=== PATIENT | male | born 1985 | race Hispanic/Latino ===

== ENCOUNTER 2020-09-20 12:19 | Outpatient (RCR) | payer BC, SELFPAY | END 2020-09-20 23:59 | LOC: IMMUN 12:19 | PROVIDERS: Visit Provider Family Medicine | DX: Z23 Encounter for immunization (principal) | CPT/HCPCS: 0011A; 0012A; 91301 ==

== ENCOUNTER 2024-02-18 23:20 | Inpatient (IN) | payer OTHER, SELFPAY ==
--- NOTE | 2024-02-18 00:40 | RAD_ITS ---
INDICATION: Neuro deficit, acute, stroke suspected EXAMINATION/TECHNIQUE: X-RAY - XR Chest 1 View COMPARISON: None. FINDINGS: LINES/DEVICES: None. LUNGS: No consolidation, edema or effusion. No pneumothorax. MEDIASTINUM AND CARDIOVASCULAR STRUCTURES: Cardiac silhouette not enlarged. BONES AND SOFT TISSUES: Unremarkable. RAD/Chest 1 View IMPRESSION: No radiographic evidence of acute cardiopulmonary disease. Electronically Signed: Vic Vazquez MD at 1:05 EDT ,
[2024-02-18 23:20] VITALS: BP 157/84; PULSE 94; RESP 18; TEMP 36.6; O2SAT 100
--- NOTE | 2024-02-18 23:28 | CT_ITS ---
We are attempting to reach an attending provider to discuss findings. An addendum with communication details will be sent when the communication is complete. INDICATION: CVA. Right arm and leg weakness. EXAMINATION: CT BRAIN - CT Head Stroke Protocol W/O Contrast Injection TECHNIQUE: Multiple axial images were obtained of the head without intravenous contrast. A radiation dose optimization technique was used for this scan. IV Contrast dosage and agent: None. COMPARISON: None. FINDINGS: BRAIN PARENCHYMA: No intra- or extra-axial hemorrhage. No evidence of acute infarct. No intracranial mass or mass effect. Unremarkable white matter for age. There is preservation of the santiago/white matter interface. Posterior fossa structures are unremarkable. CSF SPACES: Cerebral volume appropriate for age. No hydrocephalus. Basal cisterns are patent. CALVARIUM, SKULL BASE, PARANASAL SINUSES AND MASTOID AIR CELLS: No acute osseous finding. Paransasal sinuses are clear. Mastoid air cells are clear. ORBITS: Both globes, extraocular muscles, optic nerves and retrobulbar fat appear unremarkable. ASPECTS Score for Acute Strokes: 10 CT/STROKE Brain/Head without Cont IMPRESSION: No CT evidence of acute intracranial hemorrhage or injury. MRI could further evaluate as clinically indicated. Electronically Signed: Vic Vazquez MD at 23:49 EDT ,
--- NOTE | 2024-02-18 23:28 | EKG12_ITS ---
Test Reason : DYSRHYTHMIA Blood Pressure : / mmHG Vent. Rate : 101 BPM Atrial Rate : 101 BPM P-R Int : 142 ms QRS Dur : 082 ms QT Int : 326 ms P-R-T Axes : 053 021 042 degrees QTc Int : 422 ms Sinus tachycardia Otherwise normal ECG Confirmed by Jovani Alanis ([id number]), market editor KATERIN BENTON ([id number]) on 02/23/2024 6:00:08 AM Referred By: Confirmed By:Jovani Alanis
--- NOTE | 2024-02-18 23:28 | CT_ITS ---
We are attempting to reach an attending provider to discuss findings. An addendum with communication details will be sent when the communication is complete. INDICATION: Neuro deficit, acute, stroke suspected right arm and leg weakness. EXAMINATION: CTA CAROTIDS AND BRAIN - CTA Head and Neck Stroke W/ Contrast (and W/O if performed) TECHNIQUE: Routine CTA of the head and neck was performed with post processing of the angiographic images for volumetric reconstructions. In addition, images were obtained of the [place]. Nascet criteria using the distal ICAs for comparison were used for evaluation of stenoses. 3D reconstructions were reviewed. A radiation dose optimization technique was used for this scan. IV Contrast dosage and agent: 100 mL [id number] COMPARISON: CT head on same day. FINDINGS: --NECK: AORTIC ARCH AND BRANCHES: Normal anatomy, patent. RIGHT CCA: No occlusion, significant stenosis or dissection. RIGHT ICA: No occlusion, significant stenosis or dissection. LEFT CCA: No occlusion, significant stenosis or dissection. LEFT ICA: No occlusion, significant stenosis or dissection. RIGHT VERTEBRAL ARTERY: No occlusion, significant stenosis or dissection. LEFT VERTEBRAL ARTERY: No occlusion, significant stenosis or dissection. NECK SOFT TISSUES: Unremarkable. LUNG APICES: Clear. BONES: Unremarkable. --HEAD: --Anterior circulation: ICAs: No significant stenosis at the intracranial/visualized segments. ACAs: No significant stenosis at the visualized segments. ACOM: Present. MCAs: No significant stenosis at the visualized segments. --Posterior circulation: PCOMs: Not seen supply chain generalist: No significant stenosis at the visualized segments. BASILAR ARTERY: No significant stenosis. VERTEBRAL ARTERIES: No significant stenosis at the intradural/visualized segments. No evidence of intracranial aneurysm or vascular malformation. CT/STROKE CTA Head AND Neck W/Con IMPRESSION: No CT evidence of cervical or proximal intracranial vascular occlusion or focal flow-limiting stenosis. Electronically Signed: Vic Vazquez MD at 0:22 EDT ,
[2024-02-18 23:29] VITALS: BP 157/84; PULSE 94; RESP 18; O2SAT 100
[2024-02-18 23:42] VITALS: BMI 31.8
[2024-02-18 23:45] VITALS: BMI 31.8
[2024-02-18 23:52] VITALS: BP 147/93; PULSE 103; RESP 23; TEMP 36.6; O2SAT 97
[2024-02-18] MEDS: 0.9% Saline Lock 10 ML Syringe IV (23:52)
[2024-02-18] MEDS: TENECTEPLASE 3427.2 MG IV (23:52)
[2024-02-19] VITALS (41 sets, daily range): BP systolic 95–158; BP diastolic 71–102; PULSE 76–112; RESP 13–28; TEMP 36.1–36.8; O2SAT 92–99; BMI 32.7; BMI 31.8; BMI 32.8
[2024-02-19 00:03] LABS: International Normalized Ratio 1.2; Partial Thromboplast Time 32.8 Seconds (24.1-36.2); Prothrombin Time (Protime)PT. 15.4 SECONDS (11.7-14.9)
[2024-02-19 00:04] LABS: Anion Gap 6 (5-15); BUN 11 mg/dL (7-18); BUN/Creat Ratio 11.8 RATIO (10-20); Calcium,Total 9.3 mg/dL (8.5-10.1); Chloride 104 mmol/L (98-107); Creatinine, Serum 0.93 mg/dL (0.70-1.30); EST Glomerular Filtration Rate 97 mL/min (>60); Est Glom Filt Rate - Afr Amer 117 mL/min (>60); Estimated Creatinine Clearance 121.58 ml/min; Glucose 112 mg/dL (74-106); Potassium 3.7 mmol/L (3.5-5.1); Sodium Level 136 mmol/L (136-145)
[2024-02-19 00:29] LABS: Absolute Lymphocyte Count 2.54 X10^3/uL (0.83-4.51); Absolute Neutrophil Count 7.2 X10^3/uL (2.0-7.7); Basophil# 0.09 X10^3/uL; Basophil% 0.8 % (0-1); Eosinophils% 1.9 % (0-5); Hematocrit 43.3 % (40-54); Hemoglobin 14.6 g/dL (13.0-16.5); Lymphocyte # 2.54 X10^3/ul (0.83-4.51); Lymphocyte % 23.5 % (19-41); Mean Corp Hgb Conc 33.7 g/dL (32-36); Mean Corpuscular Hgb 31.1 pg (27.0-32.0); Mean Corpuscular Volume 92.1 fL (80-94); Mean Platelet Vol. 11.1 fl (6.2-12.0); Monocyte# 0.74 X10^3/uL; Monocyte% 6.9 % (0-10); NRBC Flagged by Analyzer 0 % (0-5); Neutrophil # 7.19 X10^3/uL (2.7-7.7); Neutrophil % 66.5 % (47-70); Platelet Count 229 K/mm3 (150-450); RBC Distribution Width CV 12.8 % (11.6-14.6); RBC Distribution Width SD 42.2 fl (35.1-43.9); White Blood Count 10.8 K/mm3 (4.4-11.0)
[2024-02-19] MEDS: 0.9% Normal Saline (1000mL) 1,000 ML 100 ML IV (00:30)
--- NOTE | 2024-02-19 00:42 | EDS_ITS ---
HPI History of Present Illness Chief Complaint: Stroke Alert Informant: patient, spouse/S.O. and EMS Narrative Narrative: Patient is a 38-year-old male with no significant past medical history. He states around [id number] [phone] this evening he felt some numbness and tingling in his right arm and leg which lasted for a few seconds and resolved. He states he went to work and around 10 PM he had sudden onset of right arm and right leg weakness and numbness to the point where he could not stand. Secondary to this EMS was called. Patient states that there is no family history of stroke and he denies any past medical issues. He does state he recently started Lamisil secondary to onychomycosis but has only been on that for approximately 1 week. PFSH PFS Medical History no medical history Home Medications ?Medication ?Instructions ?Recorded ?Last Taken ?Type terbinafine HCl 250 mg tablet 250 mg PO DAILY 02/19/24 Unknown History Allergy/AdvReac Type Severity Reaction Status Date / Time No Known Allergies Allergy Verified 02/18/24 23:27 Social History Smoking Status: Never smoker ROS [facility] ED Constitutional Constitutional ED: Denies chills or fever(s) Eyes Eyes: Denies change in vision or diplopia ENT ENT ED: Denies sore throat Cardiovascular Cardiovascular: Denies chest pain, palpitations or racing heartbeat Respiratory/Chest Respiratory/Chest: Denies cough or dyspnea Gastrointestinal Gastrointestinal: Denies abdominal pain, diarrhea, nausea or vomiting Genitourinary Genitourinary ED: Denies dysuria Musculoskeletal Musculoskeletal: Denies myalgias Integumentary Denies rash Neurologic Neurologic: Reports paresthesias and weakness; Denies headache(s) Hematologic/Lymphatic Hematologic/Lymphatic: Denies easy bleeding or easy bruising EXAM Physical Exam Const Vital Signs: 02/18/24 23:20 02/18/24 23:29 02/18/24 23:33 Temperature 97.9 F Temperature Source Temporal Pulse Rate 94 94 Respiratory Rate 18 18 Blood Pressure 157/84 H 157/84 H Blood Pressure Mean 108 108 Blood Pressure Source Blood Pressure Position Blood Pressure Location Pulse Ox 100 100 Oxygen Delivery Method Room Air Room Air Room Air 02/18/24 23:52 02/18/24 23:52 02/19/24 00:07 Temperature 98 F Temperature Source Oral Pulse Rate 103 H 97 Respiratory Rate 23 H 22 H Blood Pressure 147/93 H 147/93 H 158/79 H Blood Pressure Mean 111 105 Blood Pressure Source Monitor Monitor Blood Pressure Position Semi-Fowlers Semi-Fowlers Blood Pressure Location Right Arm Right Arm Pulse Ox 97 98 Oxygen Delivery Method Room Air Room Air 02/19/24 00:22 Temperature Temperature Source Pulse Rate 88 Respiratory Rate 20 H Blood Pressure 151/90 H Blood Pressure Mean 110 Blood Pressure Source Monitor Blood Pressure Position Semi-Fowlers Blood Pressure Location Right Arm Pulse Ox 97 Oxygen Delivery Method Room Air Positive well nourished and well developed General Appearance ED: well developed; Negative for pallor HEENT Reports moist mucous membranes HEENT Narrative: No tongue or lip swelling no oral lesions no airway edema or compromise Eyes PERRL and EOMs intact bilaterally General Eye ED: Negative for pale conjunctiva or scleral icterus Neck supple Neck Narrative: No nuchal rigidity or meningeal signs noted No carotid bruit noted Chest Wall palpation of chest normal Resp normal respiratory effort and clear to auscultation bilaterally Cardio regular rate and regular rhythm Rate: other Other Details: Heart is regular rate and rhythm without murmurs rubs or gallops Radial and carotid pulses are equal and symmetric GI normal to inspection, nondistended, normoactive bowel sounds, non-tender, non- distended and no masses GI Narrative: No voluntary guarding or rigidity or pulsatile mass Auscultation: normoactive bowel sounds Palpation: soft Extremity normal to inspection Extremity Narrative: No asymmetric edema no pitting edema negative Homans' sign bilaterally Neuro oriented x3 Neuro Narrative: GCS of 15 No truncal ataxia Patient has an NIH stroke scale score of 6. He receives a score based on 2 points for facial droop. 1 point for right leg drift. 1 point for right arm drift. 1 point for right sided ataxia. 1 point for mild sensory loss Sensorium / Orientation: alert Psych mental status grossly normal Skin no rashes or lesions noted and no wounds General Skin Exam: Negative for jaundice or pallor MDM MDM MDM Narrative Medical decision making narrative: Patient arrived to the ER hypertensive but otherwise with stable vitals. He had symptoms consistent with an acute stroke and therefore a stroke alert was activated. He reported a sensation of weakness/numbness that lasted just for a few seconds around 630/645 but his severe case of weakness where he could not ambulate was at 10 PM. The symptoms are concerning for a stuttering stroke and 10 PM would be considered a last known well as that was the last bout of symptoms and the most intense symptoms. Following the CT which was negative for acute bleed patient was given TNK based on his score of 6. CTA revealed no acute findings. Patient did have spontaneous improvement of symptoms and NIH stroke scale score reduced to a value of 1. Teleneurology was consulted and feel that patient is safe to be kept at this facility as long as CTA does not reveal any signs of LVO. Patient's CTA revealed no acute changes either and therefore medicine was contacted and he will be kept at our hospital for further evaluation of his TIA versus stuttering stroke symptoms. History & Record Review Discussion w/independent historian: Patient and Significant other Lab Data Attestation: I reviewed the patient's lab results. Labs: Laboratory Results - last 24 hr 02/18/24 02/18/24 02/18/24 22:36 22:36 23:48 WBC Cancelled Corrected WBC Cancelled RBC Cancelled Hgb Cancelled Hct Cancelled MCV Cancelled MCH Cancelled MCHC Cancelled RDW Std Deviation Cancelled RDW Coeff of Surya Cancelled Plt Count Cancelled MPV Cancelled Immature Gran % (Auto) Cancelled Neut % (Auto) Cancelled Lymph % (Auto) Cancelled Hughes % (Auto) Cancelled Eos % (Auto) Cancelled Baso % (Auto) Cancelled Absolute Neuts (auto) Cancelled Absolute Lymphs (auto) Cancelled Total Counted Cancelled Neutrophils % (Manual) Cancelled Band Neutrophils % Cancelled Lymphocytes % (Manual) Cancelled Monocytes % (Manual) Cancelled Eosinophils % (Manual) Cancelled Basophils % (Manual) Cancelled Metamyelocytes % Cancelled Myelocytes % Cancelled Promyelocytes % Cancelled Blast Cells % Cancelled Plasma Cell % (Manual) Cancelled Other Cells % Cancelled Nucleated RBC % Cancelled Nucleated RBCs/100 WBC Cancelled Differential Comment Cancelled Diff Path Review Cancelled Hypersegmented Neuts Cancelled Atypical Lymphocytes Cancelled Reactive Lymphocytes Cancelled Smudge Cells Cancelled Toxic Granulation Cancelled Toxic Vacuolation Cancelled Dohle Bodies Cancelled Shivani Rods Cancelled Platelet Estimate Cancelled Plt Morphology Comment Cancelled RBC Morphology Cancelled Cancelled Polychromasia Cancelled Hypochromasia Cancelled Basophilic Stippling Cancelled Anisocytosis Cancelled Microcytosis Cancelled Macrocytosis Cancelled Spherocytes Cancelled Sickle Cells Cancelled Target Cells Cancelled Tear Drop Cells Cancelled Ovalocytes Cancelled Stomatocytes Cancelled Krause-[place]-Academy Bodies Cancelled Jadiel Cells Cancelled Bite Cells Cancelled Crenated Cell Cancelled Acanthocytes (Spur) Cancelled Rouleaux Cancelled Schistocytes Cancelled PT 15.4 H INR 1.2 APTT 32.8 Sodium 136 Potassium 3.7 Chloride 104 Carbon Dioxide 26.0 Anion Gap 6 BUN 11 Creatinine 0.93 Estim Creat Clear Calc 121.58 Est GFR (MDRD) Af Amer 117 Est GFR (MDRD) Non-Af 97 BUN/Creatinine Ratio 11.8 Glucose 112 H Calcium 9.3 02/19/24 00:05 WBC 10.8 Corrected WBC RBC 4.70 Hgb 14.6 Hct 43.3 MCV 92.1 MCH 31.1 MCHC 33.7 RDW Std Deviation 42.2 RDW Coeff of Surya 12.8 Plt Count 229 MPV 11.1 Immature Gran % (Auto) 0.400 Neut % (Auto) 66.5 Lymph % (Auto) 23.5 Hughes % (Auto) 6.9 Eos % (Auto) 1.9 Baso % (Auto) 0.8 Absolute Neuts (auto) 7.2 Absolute Lymphs (auto) 2.54 Total Counted Neutrophils % (Manual) Band Neutrophils % Lymphocytes % (Manual) Monocytes % (Manual) Eosinophils % (Manual) Basophils % (Manual) Metamyelocytes % Myelocytes % Promyelocytes % Blast Cells % Plasma Cell % (Manual) Other Cells % Nucleated RBC % 0 Nucleated RBCs/100 WBC Differential Comment Diff Path Review Hypersegmented Neuts Atypical Lymphocytes Reactive Lymphocytes Smudge Cells Toxic Granulation Toxic Vacuolation Dohle Bodies Shivani Rods Platelet Estimate Plt Morphology Comment RBC Morphology Polychromasia Hypochromasia Basophilic Stippling Anisocytosis Microcytosis Macrocytosis Spherocytes Sickle Cells Target Cells Tear Drop Cells Ovalocytes Stomatocytes Krause-[place]-Academy Bodies Jadiel Cells Bite Cells Crenated Cell Acanthocytes (Spur) Rouleaux Schistocytes PT INR APTT Sodium Potassium Chloride Carbon Dioxide Anion Gap BUN Creatinine Estim Creat Clear Calc Est GFR (MDRD) Af Amer Est GFR (MDRD) Non-Af BUN/Creatinine Ratio Glucose Calcium Radiography Diagnostic Testing: Clinical Impression(s) from Imaging Studies Brain CT 02/18/24 23:28 IMPRESSION: No CT evidence of acute intracranial hemorrhage or injury. MRI could further evaluate as clinically indicated. Electronically Signed: Vic Vazquez MD at 23:49 EDT , ADDENDUM: 02/18/24 2357 IMPRESSION: No CT evidence of acute intracranial hemorrhage or injury. MRI could further evaluate as clinically indicated. N.B. : The above Results were Read Back by Vic Vazquez MD to Dr. Mil Walter DO, and understanding confirmed on 02/18/2024 23:50:47 (ET). Electronically Signed: Vic Vazquez MD at 23:49 EDT Reading Location ID and State: [facility] / [place] Tel , Service support , Head/Neck CTA 02/18/24 23:28 IMPRESSION: No CT evidence of cervical or proximal intracranial vascular occlusion or focal flow-limiting stenosis. Electronically Signed: Vic Vazquez MD at 0:22 EDT , ADDENDUM: 02/19/24 0031 IMPRESSION: No CT evidence of cervical or proximal intracranial vascular occlusion or focal flow-limiting stenosis. N.B. : The above Results were Read Back by Vic Vazquez MD to Dr. Mil Walter DO, and understanding confirmed on 02/19/2024 00:24:42 (ET). Electronically Signed: Vic Vazquez MD at 0:22 EDT , 1 view chest x-ray as interpreted by the emergency medicine physician reveals no acute infiltrate or pneumothorax or pleural effusion Critical Care Time Critical Care Time: Yes Critical care time (excluding procedures): Discussing w/Patient &/or Family/Dispatch Machine Runner, Discussing w/Consultants and - (Critical care time of 31 minutes) Discharge Plan Triage Chief Complaint: Stroke Alert ED Provider: Mil Walter Dx/Rx/DC Orders Clinical Impression: TIA (transient ischemic attack), Hypertension Prescriptions: No Action terbinafine HCl 250 mg tablet 250 mg PO DAILY Primary Care Provider: NOEMÍ FERGUSON Referrals: NOEMÍ FERGUSON [Other] Print Language: Upper Sorbian Disposition Disposition: Acute Care Hospital [facility]
[2024-02-19 01:16] LABS: Amphetamine Urine VISTA NEGATIVE (<1000 ng/mL); Barbiturate Urine VISTA NEGATIVE (< 200 ng/mL); Benzodiazepine Urine VISTA NEGATIVE (< 200 ng/mL); Cocaine Urine VISTA NEGATIVE (< 300 ng/mL); Ecstacy Urine VISTA NEGATIVE (< 500 ng/mL); Methadone Urine VISTA NEGATIVE (< 300 ng/mL); PCP Urine VISTA NEGATIVE (< 25 ng/mL); THC Urine VISTA NEGATIVE (< 50 ng/mL); Vista UDS pH Range 6
--- NOTE | 2024-02-19 01:17 | PCM.HP.STD ---
HPI - General General Date of Admission: 02/19/24 Date of Service: 02/19/24 Chief Complaint: Transient Right-sided Weakness with Numbness and Tingling. HPI Narrative LORIE MCCORMICK, is a 38 M with a past medical history of essential hypertension, obesity; with BMI of 31.8 this admission, remote history of Right femur fracture (2005); s/p ORIF done in [place] with subsequent hardware failure and refracture requiring revision with titanium keren in shaft and onychomycosis; with patient recently started on oral Terbinafine who presents to [facility] ER complaining of Right-sided weakness with numbness and tingling. Mr. Mccormick reports his symptoms began approximately 6:45 PM when he began to feel numbness and tingling in his Right leg and arm which lasted for a few seconds and then resolved. He then went to work around 10 PM and had a sudden-onset of severe weakness in his Right arm and Right leg to the point where he could not stand resulting in EMS activation. There was no report of fever, chills, nausea, vomiting, diarrhea, constipation, recent illness, seizure activity, headache or slurred speech. He denies a history of similar previous episodes, family history of premature CVA or illicit drug use. In the ER he was treated with TNK due to a stroke score of 6 with immediate improvement and he was then diagnosed with suspected TIA versus stuttering CVA and he was then admitted to the ICU for stay that is expected to extend beyond 2 midnights. [facility] Medical History no medical history Home Medications ?Medication ?Instructions ?Recorded ?Last Taken ?Type terbinafine HCl 250 mg tablet 250 mg PO DAILY 02/19/24 Unknown History Allergy/AdvReac Type Severity Reaction Status Date / Time No Known Allergies Allergy Verified 02/18/24 23:27 Social History Smoking Status: Never smoker ROS ROS Narrative Review of systems: General: Patient denies fever or chills. HENT: Denies headache, denies stuffy nose, denies sore throat EYES: Denies changes in vision or discharge from eyes. Resp: Denies cough, denies shortness of breath Cardiac: Denies chest pain, palpitations or heart racing. GI: Denies abdominal pain, denies changes in bowel, denies nausea or vomiting. : Denies changes in urination Extremity: Denies swelling Musculoskeletal: Patient denies arthralgias or myalgias. Neuro: Patient admits to paresthesias of his Right upper and lower extremity followed by severe weakness of his Right and upper and lower extremity that resolved after TNK as per HPI. Heme: Denies any bleeding or bruising Skin: Denies rashes Psychiatric: No complaints voiced related uncontrolled depression or anxiety Endocrine: No polyuria, polydipsia or polyphagia. The rest of the 14 point ROS was negative except for positives in HPI. Vital Signs Vital Signs Vital Signs: 02/18/24 23:20 02/18/24 23:29 02/18/24 23:33 Temperature 97.9 F Temperature Source Temporal Pulse Rate 94 94 Respiratory Rate 18 18 Blood Pressure 157/84 H 157/84 H Blood Pressure Mean 108 108 Blood Pressure Source Blood Pressure Position Blood Pressure Location Pulse Ox 100 100 Oxygen Delivery Method Room Air Room Air Room Air 02/18/24 23:52 02/18/24 23:52 02/19/24 00:07 Temperature 98 F Temperature Source Oral Pulse Rate 103 H 97 Respiratory Rate 23 H 22 H Blood Pressure 147/93 H 147/93 H 158/79 H Blood Pressure Mean 111 105 Blood Pressure Source Monitor Monitor Blood Pressure Position Semi-Fowlers Semi-Fowlers Blood Pressure Location Right Arm Right Arm Pulse Ox 97 98 Oxygen Delivery Method Room Air Room Air 02/19/24 00:22 02/19/24 00:37 02/19/24 00:42 Temperature Temperature Source Oral Pulse Rate 88 89 87 Respiratory Rate 20 H 25 H 25 H Blood Pressure 151/90 H 141/92 H 152/92 H Blood Pressure Mean 110 108 112 Blood Pressure Source Monitor Monitor Monitor Blood Pressure Position Semi-Fowlers Semi-Fowlers Semi-Fowlers Blood Pressure Location Right Arm Right Arm Right Arm Pulse Ox 97 98 98 Oxygen Delivery Method Room Air Room Air Room Air 02/19/24 00:58 Temperature Temperature Source Pulse Rate 92 Respiratory Rate 20 H Blood Pressure 141/92 H Blood Pressure Mean 108 Blood Pressure Source Monitor Blood Pressure Position Semi-Fowlers Blood Pressure Location Right Arm Pulse Ox 97 Oxygen Delivery Method Room Air Weight Weight: 209 lb 7.026 oz Body Mass Index (BMI) 31.8 Physical Exam Const alert, oriented x3, no apparent distress, average body habitus and healthy appearing General Appearance: cooperative HEENT normocephalic, head/scalp atraumatic, hearing grossly normal bilaterally and moist oral mucous membranes Eyes PERRL and EOMs intact bilaterally Neck no lymphadenopathy and supple Resp normal respiratory effort, no retractions, no use of accessory muscles and clear to auscultation bilaterally Cardio regular rate and regular rhythm GI normal to inspection, nondistended, normoactive bowel sounds, soft to palpation, non-tender and non-distended Extremity normal to inspection and full ROM Skin Skin Narrative: Patient has no evidence of abscess, rash or jaundice Neuro oriented x3, CN's II-XII intact bilaterally, moves all extremities and no focal motor deficits Sensorium / Orientation: awake, alert, oriented to person, oriented to place and oriented to time Speech: speech normal Psych affect normal Results Medical Records Data Attestation: I reviewed the patient's medical records Lab / Micro Data Attestation: I reviewed the patient's lab results. 02/19/24 04:20 02/19/24 04:20 Labs: Laboratory Results - last 24 hr 02/18/24 22:36: WBC Cancelled, Corrected WBC Cancelled, RBC Cancelled, Hgb Cancelled, Hct Cancelled, MCV Cancelled, MCH Cancelled, MCHC Cancelled, RDW Std Deviation Cancelled, RDW Coeff of Surya Cancelled, Plt Count Cancelled, MPV Cancelled, Immature Gran % (Auto) Cancelled, Neut % (Auto) Cancelled, Lymph % (Auto) Cancelled, [place] % (Auto) Cancelled, Eos % (Auto) Cancelled, Baso % (Auto) Cancelled, Absolute Neuts (auto) Cancelled, Absolute Lymphs (auto) Cancelled, Total Counted Cancelled, Neutrophils % (Manual) Cancelled, Band Neutrophils % Cancelled, Lymphocytes % (Manual) Cancelled, Monocytes % (Manual) Cancelled, Eosinophils % (Manual) Cancelled, Basophils % (Manual) Cancelled, Metamyelocytes % Cancelled, Myelocytes % Cancelled, Promyelocytes % Cancelled, Blast Cells % Cancelled, Plasma Cell % (Manual) Cancelled, Other Cells % Cancelled, Nucleated RBC % Cancelled, Nucleated RBCs/100 WBC Cancelled, Differential Comment Cancelled, Diff Path Review Cancelled, Hypersegmented Neuts Cancelled, Atypical Lymphocytes Cancelled, Reactive Lymphocytes Cancelled, Smudge Cells Cancelled, Toxic Granulation Cancelled, Toxic Vacuolation Cancelled, Dohle Bodies Cancelled, Shivani Rods Cancelled, Platelet Estimate Cancelled, Plt Morphology Comment Cancelled, RBC Morphology Cancelled 02/18/24 22:36: RBC Morphology Cancelled, Polychromasia Cancelled, Hypochromasia Cancelled, Basophilic Stippling Cancelled, Anisocytosis Cancelled, Microcytosis Cancelled, Macrocytosis Cancelled, Spherocytes Cancelled, Sickle Cells Cancelled, Target Cells Cancelled, Tear Drop Cells Cancelled, Ovalocytes Cancelled, Stomatocytes Cancelled, [place] Bodies Cancelled, Jadiel Cells Cancelled, Bite Cells Cancelled, Crenated Cell Cancelled, Acanthocytes (Spur) Cancelled, Rouleaux Cancelled, Schistocytes Cancelled, Sodium 136, Potassium 3.7, Chloride 104, Carbon Dioxide 26.0, Anion Gap 6, BUN 11, Creatinine 0.93, Estim Creat Clear Calc 121.58, Est GFR (MDRD) Af Amer 117, Est GFR (MDRD) Non-Af 97, BUN/Creatinine Ratio 11.8, Glucose 112 H, Calcium 9.3 02/18/24 23:48: PT 15.4 H, INR 1.2, APTT 32.8 02/19/24 00:05: WBC 10.8, RBC 4.70, Hgb 14.6, Hct 43.3, MCV 92.1, MCH 31.1, MCHC 33.7, RDW Std Deviation 42.2, RDW Coeff of Surya 12.8, Plt Count 229, MPV 11.1, Immature Gran % (Auto) 0.400, Neut % (Auto) 66.5, Lymph % (Auto) 23.5, [place] % (Auto) 6.9, Eos % (Auto) 1.9, Baso % (Auto) 0.8, Absolute Neuts (auto) 7.2, Absolute Lymphs (auto) 2.54, Nucleated RBC % 0 02/19/24 00:45: Urine Opiates Screen NEGATIVE, Urine Methadone Screen NEGATIVE, Ur Barbiturates Screen NEGATIVE, Ur Phencyclidine Scrn NEGATIVE, Ur Amphetamines Screen NEGATIVE, MDMA (Ecstasy) Screen NEGATIVE, U Benzodiazepines Scrn NEGATIVE, Urine Cocaine Screen NEGATIVE, U Cannabinoids Screen NEGATIVE, Ur Drug Screen Comment Imaging Radiology Impression Chest X-Ray 02/18/24 00:40 IMPRESSION: No radiographic evidence of acute cardiopulmonary disease. Electronically Signed: Vic Vazquez MD at 1:05 EDT Reading Location ID and State: [facility] / [place] Tel , Service support , Brain CT 02/18/24 23:28 IMPRESSION: No CT evidence of acute intracranial hemorrhage or injury. MRI could further evaluate as clinically indicated. Electronically Signed: Vic Vazquez MD at 23:49 EDT Reading Location ID and State: [facility] / [place] Tel , Service support , ADDENDUM: 02/18/24 2357 IMPRESSION: No CT evidence of acute intracranial hemorrhage or injury. MRI could further evaluate as clinically indicated. N.B. : The above Results were Read Back by Vic Vazquez MD to Dr. Mil Walter DO, and understanding confirmed on 02/18/2024 23:50:47 (ET). Electronically Signed: Vic Vazquez MD at 23:49 EDT Reading Location ID and State: [facility] / [place] Tel , Service support , Head/Neck CTA 02/18/24 23:28 IMPRESSION: No CT evidence of cervical or proximal intracranial vascular occlusion or focal flow-limiting stenosis. Electronically Signed: Vic Vazquez MD at 0:22 EDT , ADDENDUM: 02/19/24 0031 IMPRESSION: No CT evidence of cervical or proximal intracranial vascular occlusion or focal flow-limiting stenosis. N.B. : The above Results were Read Back by Vic Vazquez MD to Dr. Mil Walter DO, and understanding confirmed on 02/19/2024 00:24:42 (ET). Electronically Signed: Vic Vazquez MD at 0:22 EDT , Assessment & Plan Assessment/Plan (1) TIA (transient ischemic attack): (2) Obesity (BMI 30.0-34.9): (3) Hypertension: QUALIFIERS: Hypertension type: unspecified Qualified Code(s): I10 - Essential (primary) hypertension PLAN: Plan 1. TIA versus stuttering CVA with transient Right upper and lower extremity paresthesias followed by severe Right upper and lower extremity weakness markedly improved after TNK - Admit to ICU for close monitoring after TNK as per protocol. Check echocardiogram to evaluate LVEF and also to assess for possible PFO. Check MRI of brain to evaluate for evidence of ischemic injury. Check lipid profile, hemoglobin A1c and TSH in light of patient's young age and severe symptoms for more complete metabolic evaluation. UDS done in ER completely negative for drugs of abuse. Begin statin but avoid ECASA for 24 hours after TNK per protocol. 2. Obesity; with BMI of 31.8 this admission complicating #1 - Weight loss will be recommended. 3. Essential hypertension - Hold scheduled antihypertensives until CVA definitively ruled out on MRI. 4. Remote history of Right femur fracture (~2005); s/p ORIF done in [place] with subsequent hardware failure and refracture requiring revision with titanium keren in shaft - Noted. 5. Onychomycosis - Restart terbinafine as outpatient which would likely be more effective as pulsed therapy rather than daily administration due to increased risk of toxicity. 6. DVT prophylaxis - SCD's only after recent TNK administration. Total time: Approximately 75 minutes. Charges/Coding Visit Charges Inpatient E&M: 86761 Init Hosp L3
--- NOTE | 2024-02-19 02:01 | ED.RN ---
REPORT CALLED TO ICU NURSE CORTEZ AT THIS TIME, NO FURTHER QUESTIONS AT THIS TIME.
[2024-02-19 02:11] LABS: Hemoglobin A1c 5.4 % (3.8-5.6)
[2024-02-19 02:21] LABS: Magnesium 2.1 mg/dL (1.6-2.6); Phosphorus 3.5 mg/dL (2.5-4.9); Thyroid Stim Hormone (TSH) 1.48 uIU/mL (0.358-3.74)
--- NOTE | 2024-02-19 02:34 | ECHOD_ITS ---
Reason For Study: EMBOLI Procedure This was a 2D Doppler, Color Flow transthoracic echocardiogram. The study was technically difficult. Difficulty lying in left lateral decubitus position due to RT sided weakness and drifting. Exam performed portable in ICU/CCU. Left Ventricle Normal LV size. Mild concentric left ventricular hypertrophy. Left ventricular systolic function is normal. The estimated ejection fraction is 65 %. No evidence for diastolic dysfunction. No regional wall motion abnormalities noted. Right Ventricle Normal RV size. Normal systolic function. Atria Normal left atrium. Normal right atrium. Bubble contrast study is negative for PFO/ASD. Mitral Valve The mitral valve is structurally normal. No prolapse or stenosis seen. Tricuspid Valve Normal tricuspid valve. Unable to estimate RV systolic pressure due to insufficient tricuspid regurgitant envelope. Aortic Valve Trisinus/trileaflet aortic valve. Pulmonic Valve Normal pulmonic valve. Great Vessels Normal aortic root. Pericardium/Pleural No pericardial effusion. Medication Performed a rapid injection of agitated mix of 9 cc saline and 1cc air to assess for atrial septal defect. x 2. MMode/2D Measurements & Calculations LVIDd: 4.8 cm IVSd: 1.2 cm Ao root diam: 2.9 cm LVIDs: 2.9 cm LVPWd: 1.2 cm RVDd: 3.0 cm FS: 40.2 % LAV(MOD-bp): 44.6 ml LVAd ap4: 25.2 cm2 LVAd ap2: 26.2 cm2 LAV(MOD-bp) Indexed: 21.5 ml/m2 LVLd ap4: 7.5 cm LVLd ap2: 7.5 cm LAV(MOD-sp2): 40.6 ml EDV(MOD-sp4): 69.8 ml EDV(MOD-sp2): 76.8 ml LAV(MOD-sp4): 48.4 ml EDV(sp4-el): 72.5 ml EDV(sp2-el): 78.2 ml LVAs ap4: 13.6 cm2 LVAs ap2: 15.0 cm2 LVLs ap4: 6.2 cm LVLs ap2: 6.4 cm ESV(MOD-sp4): 27.7 ml ESV(MOD-sp2): 29.9 ml ESV(sp4-el): 25.2 ml ESV(sp2-el): 29.8 ml EF(MOD-sp4): 60.4 % EF(MOD-sp2): 61.0 % EF(sp4-el): 65.3 % SV(MOD-sp4): 42.2 ml SV(MOD-sp2): 46.9 ml SV(sp4-el): 47.3 ml LA A4 area: 16.7 cm2 LA dimension(2D): 3.8 cm RA A4 area: 10.2 cm2 TAPSE: 2.4 cm Time Measurements MV dec time: 0.15 sec Doppler Measurements & Calculations MV E max crispin: 66.3 cm/sec Lat Peak E' Crispin: 11.2 cm/sec Med Peak E' Crispin: 9.7 cm/sec MV A max crispin: 92.6 cm/sec E/E' lat: 5.9 E/E' med: 6.9 MV E/A: 0.72 MV V2 max: 97.9 cm/sec MV P1/2t max crispin: 65.8 cm/sec Ao V2 max: 122.9 cm/sec MV max P.8 mmHg MV P1/2t: 39.8 msec Ao max P.1 mmHg MV V2 mean: 61.7 cm/sec Ao V2 mean: 89.0 cm/sec MV mean P.7 mmHg MV dec slope: 484.8 cm/sec2 Ao mean P.6 mmHg MV V2 VTI: 15.0 cm MVA(P1/2t): 5.5 cm2 Ao V2 VTI: 23.0 cm AV (velocity ratio): 0.80 LV V1 max: 107.2 cm/sec PA V2 max: 121.7 cm/sec LV V1 max P.6 mmHg PA V2 mean: 80.9 cm/sec LV V1 mean P.7 mmHg LV V1 mean: 79.2 cm/sec LV V1 VTI: 18.5 cm ECHO/Echo Complete Interpretation Summary The estimated ejection fraction is 65 %. Mild concentric left ventricular hypertrophy. Bubble contrast study is negative for PFO/ASD. Structurally normal valves. Ordering Physician: Jeyson Solorio Referring Physician: OTD Performed By: Yin Molina RDCS, RVT
[2024-02-19 04:28] LABS: Absolute Lymphocyte Count 1.57 X10^3/uL (0.83-4.51); Basophil# 0.08 X10^3/uL; Basophil% 0.5 % (0-1); Eosinophil# 0.02 X10^3/uL; Eosinophils% 0.1 % (0-5); Hemoglobin 14.9 g/dL (13.0-16.5); Lymphocyte # 1.57 X10^3/ul (0.83-4.51); Lymphocyte % 10.8 % (19-41); Mean Corp Hgb Conc 33.9 g/dL (32-36); Mean Corpuscular Volume 91.5 fL (80-94); Mean Platelet Vol. 10.8 fl (6.2-12.0); Monocyte# 0.88 X10^3/uL; NRBC Flagged by Analyzer 0 % (0-5); Neutrophil # 11.98 X10^3/uL (2.7-7.7); Neutrophil % 82.1 % (47-70); Platelet Count 244 K/mm3 (150-450); RBC Distribution Width CV 12.4 % (11.6-14.6); RBC Distribution Width SD 41.2 fl (35.1-43.9); Red Blood Count 4.81 M/mm3 (4.6-6.2); White Blood Count 14.6 K/mm3 (4.4-11.0)
[2024-02-19 04:53] LABS: ALB/GLOB Ratio 1.3 RATIO (0.9-2.4); AST(SGOT) 30 U/L (15-37); Alanine Aminotransfer ALT/SGPT 62 U/L (16-61); Albumin, Serum 4.3 g/dL (3.2-5.0); Alkaline Phosphatase 57 U/L (45-117); Anion Gap 8 (5-15); BUN 8 mg/dL (7-18); BUN/Creat Ratio 11.1 RATIO (10-20); Calcium,Total 9.2 mg/dL (8.5-10.1); Chloride 106 mmol/L (98-107); Cholesterol 193 mg/dL (200); Creatinine, Serum 0.72 mg/dL (0.70-1.30); EST Glomerular Filtration Rate 131 mL/min (>60); Est Glom Filt Rate - Afr Amer 158 mL/min (>60); Estimated Creatinine Clearance 154.14 ml/min; Globulin 3.2 g/dL (2.2-4.2); Glucose 137 mg/dL (74-106); High Density Lipoprotein 43 mg/dL; Potassium 3.8 mmol/L (3.5-5.1); Protein, Total 7.5 g/dL (6.4-8.2); Sodium Level 140 mmol/L (136-145); Triglycerides 61 mg/dL; Very Low Density Lipoprotein 12 mg/dL (5-40)
--- NOTE | 2024-02-19 09:36 | CASEMGMT ---
RN SPENCER Assessment Face to Face with patient for initial transition planning/care coordination assessment. RN CM introduced self and role at [facility], pt voices understanding. Pt is A&Ox4 and is resting comfortably in bed and is calm. Care providers, pharmacy, and demographics verified. Admitting dx: TIA vs CVA LACE Strata: 1 PCP: Claudia Perea Specialists: Denies Preferred Pharmacy: [facility] During this stay Insurance: [facility] Prescription Benefit: Yes LNOK: Laine Vivek (W) Living Arrangements: Pt lives with his and 2 children (ages 18 and 12) and mother & father in-law in a ranch style home with 3 steps to enter ADLs/IADLs: Independent at baseline Transportation: Self, DME: Denies all DME uses or needs HHC/SNF: Denies history Pt?s goal: Home Plan: Pt states that he feels safe returning home at time of DC. PT evaluation is pending and was held today d/t the pt receiving TNK. Pt states that he doesn't foresee himself needing HHC or OP therapy but would like to see how he progresses in the hospital before making a final decision. CM to follow therapy recommendations and pt progression in the hospital to ensure the safest DC plan moving forward. Aviva Ham RN, CM
--- NOTE | 2024-02-19 10:35 | PCM.HOSP.N ---
Hospitalist Note Mr. Doyle is a 38-year-old male who presented to emergency department at [facility] on 02/19/2024 due to transient right-sided weakness with numbness and tingling. Symptoms began at approximately 645 when he began to feel numbness and tingling in his right leg and arm which lasted for a few seconds then resolved. He went to work and then around 10 PM he had sudden onset of severe weakness in his right arm and right leg to the point where he could not stand resulting in them calling the squad at work. He only takes terbinafine at baseline for onychomycosis and has no family history of stroke. NIH on presentation was 6 at which time he received 2 points for facial droop, 1.4 right leg drift, 1 point for right arm drift, 1 point for right-sided ataxia and 1 point for mild sensory loss. He was evaluated by the stroke neurologist after CT and CTA of the head and neck were performed. CT was unremarkable for any acute findings and CTA of the head and neck did not show any LVO. Stroke neurologist recommended tenecteplase be given and this was given at about midnight. Vital signs on presentation showed a temperature of 98, heart rate was 103, blood pressure was 147/93, respiratory was 23, pulse ox was 97% on room air. His CBC was unremarkable. Coags were unremarkable. Chemistry panel was unremarkable other than some mild hyperglycemia with a glucose of 137 however this was not fasting. Hemoglobin A1c was obtained and found to be 5.4. Liver enzymes were unremarkable. Cholesterol was obtained and found to be total cholesterol 193/LDL of 138 and HDL of 43. Triglyceride level was 61. TSH was normal at 1.48. Toxicology screen was unremarkable. He was admitted the ICU for post tenecteplase care. CT of the brain is planned for midnight at 24 hours post tenecteplase dosing to rule out hemorrhagic transformation and MRI will be performed. Neuroconsult is pending. We will continue high intensity dose statin and allow for some permissive hypertension within parameters for tenecteplase dosing. Goal blood pressure at discharge will be less than 130/80. Start aspirin and DVT prophylaxis tomorrow if CT is negative for any signs of hemorrhagic transformation. PT and OT to evaluate tomorrow after off bedrest.
--- NOTE | 2024-02-19 10:42 | CASEMGMT ---
SW completed a PHQ 9 with patient as he had a Stroke. Patient scored a 0 which indicates no depression. Patient declined need for any resources. [facility]
--- NOTE | 2024-02-19 12:06 | CHAPLAIN ---
Type of Pastoral Visit _x__ Initial Visit ___ Follow-up Visit ___ On-call Visit ___ General Patient Visit ___ Spiritual Assessment ___ Family Conference ___ Bereavement ___ Rapid Response ___ Code Blue ___ Other (describe below) Pastoral Care Referral From _x__ Patient ___ Family ___ Nurse ___ Physician ___ Wrapper Rewinder ___ Care Center Manager ___ Other (describe below) Sacrament/Intervention _x__ Active listening ___ Anointing ___ Religious _x__ Bereavement ___ Communion ___ [place] exploration ___ ___ Life review _x__ Prayer ___ Reconciliation ___ Sacrament of Sick _x__ Supportive presence ___ Wedding ___ Other (describe below) Pastoral Comments patient and spouse are in the room together; spouse describes the situation as symptoms of a stroke but no evidence of one and shows his limitations with hand and foot on right side; offering support and care, the pt is tearful; pt states that his younger sister in November of cancer and his father three years ago and Father's Day was hard; acknowledgement of grief and its impact on a life; review of what support the patient has in his life; spouse offers support at this time through reminders of those in their life who care and good employers; listening, time for silence, and a prayer given; pt identifies as a non holiness Nondenominational and welcomes the supportive care
--- NOTE | 2024-02-19 16:41 | CON.PCM.NE_ITS ---
Assessment and Plan: Stroke Assessment/Plan LORIE MCCORMICK Jr. is a 38 M with no past medical history who presents for evaluation of stuttering RUE/RLE weakness and numbness that has now completed with distal> proximal RUE weakness. Highest suspicion for ischemic stroke but will obtain MRI w/wo mial to rule out cancer or inflammatory disease as well. Recommend TTE w/ bubble study and hypercoaguable lab testing (lupus anticoagulant, anticardiolipin antibody, anti beta 2 glycoprotein antibody. Continue aspirin 81mg daily and atorvastatin 80mg daily for secondary stroke prevention. PT/OT/PATENT DRAFTER eval. Follow up with neurology after discharge. HPI Consult Data Date of Consult: 02/19/24 HPI Narrative HPI Narrative: LORIE MCCORMICK, is a 38 M who presents 02/18/24 stuttering RUE/RLE weakness/numbness. Initial symptoms lasted 20 minutes then resolved. Symptoms recurred twice later during the CT scan. S/p TNK. Awoke this am with worsened RUE weakness. Strong family history of cancer - sister from breast cancer and another close family member had brain cancer. [facility] Medical History no medical history Home Medications ?Medication ?Instructions ?Recorded ?Last Taken ?Type terbinafine HCl 250 mg tablet 250 mg PO DAILY 02/19/24 Unknown History Allergy/AdvReac Type Severity Reaction Status Date / Time No Known Allergies Allergy Verified 02/18/24 23:27 Social History Smoking Status: Never smoker Vital Signs Vital Signs Vital Signs: 02/18/24 23:20 02/18/24 23:29 02/18/24 23:33 Temperature 97.9 F Temperature Source Temporal Pulse Rate 94 94 Respiratory Rate 18 18 Respiratory Effort Respiratory Depth Respiratory Pattern Blood Pressure 157/84 H 157/84 H Blood Pressure Mean 108 108 Blood Pressure Source Blood Pressure Position Blood Pressure Location Pulse Ox 100 100 Oxygen Delivery Method Room Air Room Air Room Air 02/18/24 23:52 02/18/24 23:52 02/19/24 00:07 Temperature 98 F Temperature Source Oral Pulse Rate 103 H 97 Respiratory Rate 23 H 22 H Respiratory Effort Respiratory Depth Respiratory Pattern Blood Pressure 147/93 H 147/93 H 158/79 H Blood Pressure Mean 111 105 Blood Pressure Source Monitor Monitor Blood Pressure Position Semi-Fowlers Semi-Fowlers Blood Pressure Location Right Arm Right Arm Pulse Ox 97 98 Oxygen Delivery Method Room Air Room Air 02/19/24 00:22 02/19/24 00:37 02/19/24 00:42 Temperature Temperature Source Oral Pulse Rate 88 89 87 Respiratory Rate 20 H 25 H 25 H Respiratory Effort Respiratory Depth Respiratory Pattern Blood Pressure 151/90 H 141/92 H 152/92 H Blood Pressure Mean 110 108 112 Blood Pressure Source Monitor Monitor Monitor Blood Pressure Position Semi-Fowlers Semi-Fowlers Semi-Fowlers Blood Pressure Location Right Arm Right Arm Right Arm Pulse Ox 97 98 98 Oxygen Delivery Method Room Air Room Air Room Air 02/19/24 00:57 02/19/24 01:02 02/19/24 01:17 Temperature Temperature Source Pulse Rate 92 94 88 Respiratory Rate 20 H 24 H 27 H Respiratory Effort Respiratory Depth Respiratory Pattern Blood Pressure 141/92 H 145/95 H 95/85 H Blood Pressure Mean 108 111 88 Blood Pressure Source Monitor Monitor Monitor Blood Pressure Position Semi-Fowlers Semi-Fowlers Semi-Fowlers Blood Pressure Location Right Arm Right Arm Right Arm Pulse Ox 97 98 98 Oxygen Delivery Method Room Air Room Air Room Air 02/19/24 01:32 02/19/24 01:56 02/19/24 02:02 Temperature 98.1 F Temperature Source Pulse Rate 98 95 Respiratory Rate 23 H 20 H Respiratory Effort Respiratory Depth Respiratory Pattern Blood Pressure 132/94 H 138/78 H 130/97 H Blood Pressure Mean 106 98 108 Blood Pressure Source Monitor Monitor Blood Pressure Position Semi-Fowlers Semi-Fowlers Blood Pressure Location Right Arm Right Arm Pulse Ox 98 96 Oxygen Delivery Method Room Air 02/19/24 02:32 02/19/24 02:54 02/19/24 03:02 Temperature 98.2 F 98.2 F Temperature Source Temporal Temporal Pulse Rate 104 H 95 100 Respiratory Rate 20 H 28 H 13 Respiratory Effort Respiratory Depth Respiratory Pattern Blood Pressure 129/89 H 133/85 H 136/90 H Blood Pressure Mean 102 101 105 Blood Pressure Source Monitor Monitor Monitor Blood Pressure Position Semi-Fowlers Semi-Fowlers Semi-Fowlers Blood Pressure Location Right Arm Left Arm Left Arm Pulse Ox 97 98 97 Oxygen Delivery Method Room Air Room Air Room Air 02/19/24 03:32 02/19/24 03:37 02/19/24 04:02 Temperature Temperature Source Pulse Rate 101 H 106 H Respiratory Rate 20 H 18 Respiratory Effort Normal Non-Labored Respiratory Depth Normal Respiratory Pattern Normal Blood Pressure 131/92 H 138/83 H Blood Pressure Mean 105 101 Blood Pressure Source Monitor Monitor Blood Pressure Position Semi-Fowlers Semi-Fowlers Blood Pressure Location Left Arm Left Arm Pulse Ox 94 98 Oxygen Delivery Method Room Air Room Air Room Air 02/19/24 04:32 02/19/24 05:02 02/19/24 05:32 Temperature Temperature Source Pulse Rate 101 H 98 112 H Respiratory Rate 20 H 22 H 21 H Respiratory Effort Respiratory Depth Respiratory Pattern Blood Pressure 136/84 H 139/85 H 138/89 H Blood Pressure Mean 101 103 105 Blood Pressure Source Monitor Monitor Monitor Blood Pressure Position Semi-Fowlers Semi-Fowlers Semi-Fowlers Blood Pressure Location Left Arm Left Arm Left Arm Pulse Ox 94 96 97 Oxygen Delivery Method Room Air Room Air Room Air 02/19/24 06:02 02/19/24 06:32 02/19/24 07:02 Temperature Temperature Source Pulse Rate 87 111 H 97 Respiratory Rate 16 22 H 18 Respiratory Effort Respiratory Depth Respiratory Pattern Blood Pressure 137/87 H 131/82 H 136/82 H Blood Pressure Mean 103 98 100 Blood Pressure Source Monitor Monitor Monitor Blood Pressure Position Semi-Fowlers Semi-Fowlers Semi-Fowlers Blood Pressure Location Left Arm Left Arm Left Arm Pulse Ox 96 94 98 Oxygen Delivery Method Room Air Room Air Room Air 02/19/24 07:32 02/19/24 08:02 02/19/24 08:32 Temperature Temperature Source Pulse Rate 96 92 Respiratory Rate 16 18 Respiratory Effort Respiratory Depth Respiratory Pattern Blood Pressure 143/102 H 131/79 H 157/85 H Blood Pressure Mean 115 96 109 Blood Pressure Source Monitor Monitor Monitor Blood Pressure Position Semi-Fowlers Semi-Fowlers Semi-Fowlers Blood Pressure Location Left Arm Left Arm Left Arm Pulse Ox 97 98 Oxygen Delivery Method Room Air Room Air 02/19/24 09:00 02/19/24 09:02 02/19/24 09:32 Temperature Temperature Source Pulse Rate 104 H 104 H Respiratory Rate 18 18 Respiratory Effort Respiratory Depth Respiratory Pattern Blood Pressure 151/78 H 149/90 H Blood Pressure Mean 102 109 Blood Pressure Source Monitor Monitor Blood Pressure Position Semi-Fowlers Semi-Fowlers Blood Pressure Location Left Arm Right Arm Pulse Ox 97 98 97 Oxygen Delivery Method Room Air Room Air Room Air 02/19/24 10:32 02/19/24 11:32 02/19/24 12:32 Temperature Temperature Source Pulse Rate 93 98 91 Respiratory Rate 18 18 16 Respiratory Effort Respiratory Depth Respiratory Pattern Blood Pressure 137/71 H 141/86 H 126/73 H Blood Pressure Mean 93 104 90 Blood Pressure Source Monitor Monitor Monitor Blood Pressure Position Semi-Fowlers Semi-Fowlers Semi-Fowlers Blood Pressure Location Left Arm Left Arm Left Arm Pulse Ox 96 99 94 Oxygen Delivery Method Room Air Room Air Room Air 02/19/24 13:32 02/19/24 14:32 02/19/24 15:00 Temperature Temperature Source Pulse Rate 95 93 90 Respiratory Rate 16 16 18 Respiratory Effort Respiratory Depth Respiratory Pattern Blood Pressure 133/86 H 128/95 H 130/83 H Blood Pressure Mean 101 106 98 Blood Pressure Source Monitor Monitor Monitor Blood Pressure Position Semi-Fowlers Semi-Fowlers Semi-Fowlers Blood Pressure Location Left Arm Left Arm Left Arm Pulse Ox 98 92 95 Oxygen Delivery Method Room Air Room Air Room Air 02/19/24 16:00 Temperature 96.9 F L Temperature Source Temporal Pulse Rate 77 Respiratory Rate 15 Respiratory Effort Respiratory Depth Respiratory Pattern Blood Pressure 130/74 H Blood Pressure Mean 92 Blood Pressure Source Monitor Blood Pressure Position Semi-Fowlers Blood Pressure Location Left Arm Pulse Ox 94 Oxygen Delivery Method Room Air Weight Weight: 94.8 kg Body Mass Index (BMI) 32.8 EEG Results Procedure Details EEG Procedure Details: LORIE MCCORMICK Jr. is a 38 year old M with a past medical history of , who presents for evaluation of Electroencephalogram on DATE at TIME NIHSS NIHSS Nursing Documentation NIHSS Nursing Documentation: Thrombolytic: Vital Signs & NIHSS Start: 02/18/24 23:43 Text: Assess and document vital signs and NIHSS Status: Complete within 15 minutes of tenecteplase bolus administration Freq: [id number] Protocol: Activity Type Activity Date Activity User E-sign Co-sign Detail Recorded Client Recorded Date Recorded By Document 02/19/24 02:32 JS desktop 02/19/24 02:34 JS 02/19/24 02:32 Vital Signs [Pulse] -Pulse Rate (60-100) 104 H [Respirations] -Respiratory Rate (12-18) 20 H -Pulse Oximetry 97 -Oxygen Delivery Method Room Air [Blood Pressure] -Blood Pressure (90/60-120/80) 129/89 H -Blood Pressure Mean 102 -Source Monitor -Position Semi-Fowlers -Blood Pressure Location Right Arm -Is the SBP > or = 180 No -Is the DBP > or = 105 No NIH Stroke Scale [NIHSS] A score of 0 is normal or asymptomatic . Total possible score is 42. Inpatient: RN or Physician to activate a stroke alert for onset of new stroke symptoms or with NIHSS increase >/= 3 points. Following change in neurological status, NIHSS will be performed per physician order or more frequently PRN. -1a. Level of Consciousness Alert; keenly responsive -1b. LOC Questions Answers BOTH questions correctly. -1c. LOC Commands Performs both tasks correctly . -2. Best Gaze Normal -3. Visual No visual loss -4. Facial Palsy Minor paralysis (flattened nasolabial fold , asymmetry on smiling) -5a. Left Arm No drift; arm holds 90 (or 45 ) degrees for full 10 seconds -5b. Right Arm No drift; arm holds 90 (or 45 ) degrees for full 10 seconds -6a. Left Leg No drift; leg holds 30-degree position for full 5 seconds -6b. Right Leg No drift; leg holds 30-degree position for full 5 seconds -7. Limb Ataxia Absent -8. Sensory Mild-to- moderate sensory loss; -9. Best Language No aphasia; normal -10. Dysarthria Normal -11. Extinction and Inattention No abnormality -Total 2 Query Text:A score of 0 is normal or asymptomatic. Total possible score is 42 . ED: Notify Physician for NIHSS increase by > / = 3 points. Inpatient: RN or Physician to activate a stroke alert for NIHSS increase of > / = 3 points. Thrombolytic: Vital Signs & NIHSS Start: 02/19/24 02:34 Text: Assess and document vital signs and NIHSS Status: Active within 15 minutes prior to Tenecteplase administration Freq: Q1HOUR(+) Protocol: Activity Type Activity Date Activity User E-sign Co-sign Detail Recorded Client Recorded Date Recorded By Document 02/19/24 16:00 [facility] [id number] 02/19/24 16:28 [facility] 02/19/24 16:00 Vital Signs [Temperature Protocol: VS] -Temperature (97.8 F-99.1 F) 96.9 F L -Temperature Source Temporal [Pulse] -Pulse Rate (60-100) 77 -Pulse Location Monitor [Respirations] -Respiratory Rate (12-18) 15 -Respiratory rate source Monitor -Pulse Oximetry 94 -Oxygen Delivery Method Room Air [Blood Pressure] -Blood Pressure (90/60-120/80) 130/74 H -Blood Pressure Mean 92 -Source Monitor -Position Semi-Fowlers -Blood Pressure Location Left Arm -Is the SBP > or = 180 No -Is the DBP > or = 105 No NIH Stroke Scale [NIHSS] A score of 0 is normal or asymptomatic . Total possible score is 42. Inpatient: RN or Physician to activate a stroke alert for onset of new stroke symptoms or with NIHSS increase >/= 3 points. Following change in neurological status, NIHSS will be performed per physician order or more frequently PRN. -1a. Level of Consciousness Alert; keenly responsive -1b. LOC Questions Answers BOTH questions correctly. -1c. LOC Commands Performs both tasks correctly . -2. Best Gaze Normal -3. Visual No visual loss -4. Facial Palsy Normal symmetrical movements -5a. Left Arm No drift; arm holds 90 (or 45 ) degrees for full 10 seconds -5b. Right Arm Drift; arm drifts downward but doesn?t hit the bed -6a. Left Leg No drift; leg holds 30-degree position for full 5 seconds -6b. Right Leg No drift; leg holds 30-degree position for full 5 seconds -7. Limb Ataxia Absent -8. Sensory Mild-to- moderate sensory loss; -9. Best Language No aphasia; normal -10. Dysarthria Normal -11. Extinction and Inattention No abnormality -Total 2 Query Text:A score of 0 is normal or asymptomatic. Total possible score is 42 . ED: Notify Physician for NIHSS increase by > / = 3 points. Inpatient: RN or Physician to activate a stroke alert for NIHSS increase of > / = 3 points. NIHSS 1a. Level of Consciousness: Alert; keenly responsive 1b. LOC Questions: Answers BOTH questions correctly. 1c. LOC Commands: Performs both tasks correctly. 2. Best Gaze: Normal 3. Visual: No visual loss 4. Facial Palsy: Normal symmetrical movements 5a. Left Arm: No drift; arm holds 90 (or 45) degrees for full 10 seconds 5b. Right Arm: Drift; arm drifts downward but doesn?t hit the bed 6a. Left Leg: No drift; leg holds 30-degree position for full 5 seconds 6b. Right Leg: No drift; leg holds 30-degree position for full 5 seconds 7. Limb Ataxia: Absent 8. Sensory: Normal; no sensory loss 9. Best Language: No aphasia; normal 10. Dysarthria: Normal 11. Extinction and Inattention: No abnormality Total: 1 Physical Exam Narrative RUE weakness ? drift, slowed finger tapping, orbiting around RUE. RLE drift. Lab / Micro Data 02/19/24 04:20 02/19/24 04:20 Labs: Laboratory Results - last 24 hr 02/18/24 22:36: WBC Cancelled, Corrected WBC Cancelled, RBC Cancelled, Hgb Cancelled, Hct Cancelled, MCV Cancelled, MCH Cancelled, MCHC Cancelled, RDW Std Deviation Cancelled, RDW Coeff of Surya Cancelled, Plt Count Cancelled, MPV Cancelled, Immature Gran % (Auto) Cancelled, Neut % (Auto) Cancelled, Lymph % (Auto) Cancelled, Brantley % (Auto) Cancelled, Eos % (Auto) Cancelled, Baso % (Auto) Cancelled, Absolute Neuts (auto) Cancelled, Absolute Lymphs (auto) Cancelled, Total Counted Cancelled, Neutrophils % (Manual) Cancelled, Band Neutrophils % Cancelled, Lymphocytes % (Manual) Cancelled, Monocytes % (Manual) Cancelled, Eosinophils % (Manual) Cancelled, Basophils % (Manual) Cancelled, Metamyelocytes % Cancelled, Myelocytes % Cancelled, Promyelocytes % Cancelled, Blast Cells % Cancelled, Plasma Cell % (Manual) Cancelled, Other Cells % Cancelled, Nucleated RBC % Cancelled, Nucleated RBCs/100 WBC Cancelled, Differential Comment Cancelled, Diff Path Review Cancelled, Hypersegmented Neuts Cancelled, Atypical Lymphocytes Cancelled, Reactive Lymphocytes Cancelled, Smudge Cells Cancelled, Toxic Granulation Cancelled, Toxic Vacuolation Cancelled, Dohle Bodies Cancelled, Shivani Rods Cancelled, Platelet Estimate Cancelled, Plt Morphology Comment Cancelled, RBC Morphology Cancelled 02/18/24 22:36: RBC Morphology Cancelled, Polychromasia Cancelled, Hypochromasia Cancelled, Basophilic Stippling Cancelled, Anisocytosis Cancelled, Microcytosis Cancelled, Macrocytosis Cancelled, Spherocytes Cancelled, Sickle Cells Cancelled, Target Cells Cancelled, Tear Drop Cells Cancelled, Ovalocytes Cancelled, Stomatocytes Cancelled, Krause-Bushyhead Bodies Cancelled, [place] Cells Cancelled, Bite Cells Cancelled, Crenated Cell Cancelled, Acanthocytes (Spur) Cancelled, Rouleaux Cancelled, Schistocytes Cancelled, Sodium 136, Potassium 3.7, Chloride 104, Carbon Dioxide 26.0, Anion Gap 6, BUN 11, Creatinine 0.93, Estim Creat Clear Calc 121.58, Est GFR (MDRD) Af Amer 117, Est GFR (MDRD) Non-Af 97, BUN/Creatinine Ratio 11.8, Glucose 112 H, Calcium 9.3 02/18/24 23:48: PT 15.4 H, INR 1.2, APTT 32.8 02/19/24 00:05: WBC 10.8, RBC 4.70, Hgb 14.6, Hct 43.3, MCV 92.1, MCH 31.1, MCHC 33.7, RDW Std Deviation 42.2, RDW Coeff of Surya 12.8, Plt Count 229, MPV 11.1, Immature Gran % (Auto) 0.400, Neut % (Auto) 66.5, Lymph % (Auto) 23.5, Brantley % (Auto) 6.9, Eos % (Auto) 1.9, Baso % (Auto) 0.8, Absolute Neuts (auto) 7.2, Absolute Lymphs (auto) 2.54, Nucleated RBC % 0, Hemoglobin A1c 5.4 02/19/24 00:45: Urine Opiates Screen NEGATIVE, Urine Methadone Screen NEGATIVE, Ur Barbiturates Screen NEGATIVE, Ur Phencyclidine Scrn NEGATIVE, Ur Amphetamines Screen NEGATIVE, MDMA (Ecstasy) Screen NEGATIVE, U Benzodiazepines Scrn NEGATIVE, Urine Cocaine Screen NEGATIVE, U Cannabinoids Screen NEGATIVE, Ur Drug Screen Comment 02/19/24 04:20: WBC 14.6 H, RBC 4.81, Hgb 14.9, Hct 44.0, MCV 91.5, MCH 31.0, MCHC 33.9, RDW Std Deviation 41.2, RDW Coeff of Surya 12.4, Plt Count 244, MPV 10.8, Immature Gran % (Auto) 0.500, Neut % (Auto) 82.1 H, Lymph % (Auto) 10.8 L, Brantley % (Auto) 6.0, Eos % (Auto) 0.1, Baso % (Auto) 0.5, Absolute Neuts (auto) 12.0 H, Absolute Lymphs (auto) 1.57, Nucleated RBC % 0, Sodium 140, Potassium 3.8, Chloride 106, Carbon Dioxide 26.0, Anion Gap 8, BUN 8, Creatinine 0.72, Estim Creat Clear Calc 154.14, Est GFR (MDRD) Af Amer 158, Est GFR (MDRD) Non-Af 131, BUN/Creatinine Ratio 11.1, Glucose 137 H, Calcium 9.2, Total Bilirubin 0.40, AST 30, ALT 62 H, Alkaline Phosphatase 57, Total Protein 7.5, Albumin 4.3, Globulin 3.2, Albumin/Globulin Ratio 1.3, Triglycerides 61, Cholesterol 193, L DL Cholesterol 138 H, VLDL Cholesterol 12, HDL Cholesterol 43 02/19/24 22:36: Phosphorus 3.5, Magnesium 2.1, TSH 1.48 Imaging Radiology Impression Chest X-Ray 02/18/24 00:40 IMPRESSION: No radiographic evidence of acute cardiopulmonary disease. Electronically Signed: Vic Vazquez MD at 1:05 EDT Reading Location ID and State: [facility] / [place] Tel , Service support , Brain CT 02/18/24 23:28 IMPRESSION: No CT evidence of acute intracranial hemorrhage or injury. MRI could further evaluate as clinically indicated. Electronically Signed: Vic Vazquez MD at 23:49 EDT , ADDENDUM: 02/18/24 4903 IMPRESSION: No CT evidence of acute intracranial hemorrhage or injury. MRI could further evaluate as clinically indicated. N.B. : The above Results were Read Back by Vic Vazquez MD to Dr. Mil Walter DO, and understanding confirmed on 02/18/2024 23:50:47 (ET). Electronically Signed: Vic Vazquez MD at 23:49 EDT , Head/Neck CTA 02/18/24 23:28 IMPRESSION: No CT evidence of cervical or proximal intracranial vascular occlusion or focal flow-limiting stenosis. Electronically Signed: Vic Vazquez MD at 0:22 EDT , ADDENDUM: 02/19/24 0031 IMPRESSION: No CT evidence of cervical or proximal intracranial vascular occlusion or focal flow-limiting stenosis. N.B. : The above Results were Read Back by Vic Vazquez MD to Dr. Mil Walter DO, and understanding confirmed on 02/19/2024 00:24:42 (ET). Electronically Signed: Vic Vazquez MD at 0:22 EDT , Active Medications Active Medications Active Medications: Current Medications Generic Name Dose Route Start Last Admin Trade Name Freq PRN Reason Stop Dose Admin Acetaminophen 650 mg 02/19/24 02:34 Acetaminophen 325 Mg Tablet PO Q6H PRN PRN Pain 1-10 Or Fever >99.6 Atorvastatin Calcium 80 mg 02/19/24 22:00 Atorvastatin Calcium 80 Mg Tablet PO QHS TRAVIS Diphenhydramine HCl 50 mg 02/19/24 02:34 Diphenhydramine 50 Mg/Ml Syringe IV X1 PRN Allergic Reaction Epinephrine HCl 0.3 mg 02/19/24 02:34 Epi Pen (Equiv) 0.3 Mg Syringe IM 02/20/24 01:33 X1 PRN Alleric Reaction Famotidine 20 mg/ Sodium 10 mls @ 300 mls/hr 02/19/24 02:34 Chloride IV X1 PRN Allergic Reaction Sodium Chloride 250 mls @ 15 mls/hr 02/19/24 02:46 IV .[id number] PRN Additional IVPB Infusion Sodium Chloride 250 mls @ 15 mls/hr 02/19/24 02:46 IV .[id number] PRN Saline Flush Methylprednisolone 125 mg 02/19/24 02:34 Methylprednisolone 125 Mg/2 Ml Vial IV X1 PRN Allergic Reaction Sodium Chloride 10 - 40 ml 02/19/24 02:46 0.9% Saline Lock 10 Ml Syringe IV UD PRN SALINE FLUSH
[2024-02-19] MEDS: Atorvastatin Calcium 80 MG Tablet PO (21:09)
[2024-02-20] VITALS (13 sets, daily range): BP systolic 105–147; BP diastolic 63–97; PULSE 62–92; RESP 14–19; TEMP 36.3–36.9; O2SAT 91–100; BMI 32.8
--- NOTE | 2024-02-20 00:01 | CT_ITS ---
INDICATION: Stroke s/p TNK EXAMINATION: CT BRAIN - CT Head or Brain W/O Contrast Injection TECHNIQUE: Multiple axial images were obtained of the head without intravenous contrast. The protocol utilizes one or more of the following dose reduction techniques: automated exposure control, adjustment of mA and/or kV according to patient size,and/or use of iterative reconstruction technique. IV Contrast dosage and agent: None. RADIATION DOSAGE (If Supplied By Facility): CTDIvol = ( 44.99 ) mGy, DLP = ( 812.98 ) mGycm COMPARISON: CT head 02/18/2024. FINDINGS: BRAIN: No acute bleed. Small focus of decreased attenuation in the left basal ganglia was not present on the prior, likely acute infarct. Pradhan-white matter differentiation is maintained. VENTRICLES AND SULCI: Not dilated. EXTRA-AXIAL: No hemorrhage, fluid collection, or mass. CALVARIUM / SKULL BASE: Unremarkable. FACE/SINUSES: Unremarkable. SOFT TISSUES: Unremarkable. CT/Brain/Head without Contrast IMPRESSION: Small acute left basal ganglia infarct. No bleed. MRI may be helpful for further evaluation. : Electronically Signed: Edna Lopez MD at 1:42 EDT ,
[2024-02-20 04:36] LABS: Hemoglobin 14.7 g/dL (13.0-16.5); Mean Corp Hgb Conc 34.2 g/dL (32-36); Mean Corpuscular Hgb 31.3 pg (27.0-32.0); Mean Corpuscular Volume 91.7 fL (80-94); Mean Platelet Vol. 10.7 fl (6.2-12.0); Platelet Count 212 K/mm3 (150-450); RBC Distribution Width CV 12.8 % (11.6-14.6); RBC Distribution Width SD 42.7 fl (35.1-43.9); Red Blood Count 4.69 M/mm3 (4.6-6.2); White Blood Count 9.5 K/mm3 (4.4-11.0)
[2024-02-20 04:51] LABS: Anion Gap 9 (5-15); BUN 8 mg/dL (7-18); BUN/Creat Ratio 11.6 RATIO (10-20); Calcium,Total 9.1 mg/dL (8.5-10.1); Chloride 104 mmol/L (98-107); Creatinine, Serum 0.69 mg/dL (0.70-1.30); EST Glomerular Filtration Rate 137 mL/min (>60); Est Glom Filt Rate - Afr Amer 166 mL/min (>60); Estimated Creatinine Clearance 160.84 ml/min; Glucose 118 mg/dL (74-106); Potassium 3.7 mmol/L (3.5-5.1); Sodium Level 139 mmol/L (136-145)
--- NOTE | 2024-02-20 08:42 | STROKE.PNOTE ---
Objective Data Objective Data Vital Signs: Vital Signs Temp Pulse Resp BP Pulse Ox O2 Del Method 97.4 F L 81 18 124/91 H 96 Room Air 02/19/24 20:00 02/20/24 07:00 02/20/24 07:00 02/20/24 07:00 02/20/24 07:00 02/20/24 07:00 Oxygen Delivery Method Room Air Weight: 94.8 kg Body Mass Index (BMI) 32.8 Intake & Output: Intake and Output for Last 24 Hours 02/18/24 02/19/24 02/20/24 23:59 23:59 23:59 Intake Total 1808.33 / 1808.33 Output Total 3625 / 4350 1275 / 1275 Balance -1816.67 / -2541.67 -1275 / -1275 Lab / Micro Data 02/20/24 04:30 02/20/24 04:30 Labs: Laboratory Results - last 24 hr 02/20/24 04:30: WBC 9.5, RBC 4.69, Hgb 14.7, Hct 43.0, MCV 91.7, MCH 31.3, MCHC 34.2, RDW Std Deviation 42.7, RDW Coeff of Surya 12.8, Plt Count 212, MPV 10.7, Sodium 139, Potassium 3.7, Chloride 104, Carbon Dioxide 26.0, Anion Gap 9, BUN 8, Creatinine 0.69 L, Estim Creat Clear Calc 160.84, Est GFR (MDRD) Af Amer 166, Est GFR (MDRD) Non-Af 137, BUN/Creatinine Ratio 11.6, Glucose 118 H, Calcium 9.1 Radiography Diagnostic Testing: Radiology Impression Echocardiogram 02/19/24 02:34 Interpretation Summary The estimated ejection fraction is 65 %. Mild concentric left ventricular hypertrophy. Bubble contrast study is negative for PFO/ASD. Structurally normal valves. Ordering Physician: Jeyson Solorio Referring Physician: OTD Performed By: Yin Molina, RDCS, RVT Brain CT 02/20/24 00:01 IMPRESSION: Small acute left basal ganglia infarct. No bleed. MRI may be helpful for further evaluation. : Electronically Signed: Edna Lopez MD at 1:42 EDT , Physical Exam Eyes EOMs intact bilaterally and normal visual stern by confrontation Resp normal respiratory effort Neuro oriented x3, CN's II-XII intact bilaterally and moves all extremities Neuro Narrative: Awake, alert, cooperative Speech fluent. No aphasia Motor power 5/5 Decreased sensation Right face Right upper extremity ataxia Subject: Neurology Subjective LORIE MCCORMICK Jr. is a 38 year old M, who we are seeing in consultation today for advice on the management of right sided numbness and related patient care.s/p TNK. Has persistent numbness right face and weakness right upper extremity Assessment and Plan: Stroke Assessment/Plan LORIE MCCORMICK Jr. is a 38 M with with no past medical history who presents for evaluation of stuttering RUE/RLE weakness and numbness that has now completed with distal> proximal RUE weakness. Ct shows left basal ganglia stroke. Unclear etiology. LDL: 138 CTA: negative CT: Left basal ganglia stroke PLAN: Continue aspirin 81mg daily and atorvastatin 80mg daily for secondary stroke prevention. Please obtain MRI w/wo mila to rule out cancer or inflammatory disease as well. Recommend TTE w/ bubble study Plan HbA1c, hypercoaguable lab testing (lupus anticoagulant, anticardiolipin antibody, anti beta 2 glycoprotein antibody. 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 Follow up with neurology after discharge. Spent 35 minutes in evaluation
[2024-02-20] MEDS: Aspirin 81 MG TAB.CHEW PO (08:59)
--- NOTE | 2024-02-20 10:00 | MRI_ITS ---
We are attempting to reach an attending provider to discuss findings. An addendum with communication details will be sent when the communication is complete. STUDY: MRI BRAIN WITH AND WITHOUT CONTRAST REASON FOR EXAM: Male, 38 years old. CVA -- MRI 24 hours after IV thrombolytic administration TECHNIQUE: Standardized multiplanar fat and water weighted pulse sequences were obtained. 19cc clariscan was administered for the contrast portion of the examination. COMPARISON: Head CT dated February 20, 2024 FINDINGS: Small to moderate size acute infarct in the posterior limb of the left internal capsule between the thalamus and lentiform nucleus is present. No additional acute infarcts are present. Normal size of the ventricles and extra-axial spaces for the patient''s age. Normal remaining white matter tracts of the supratentorial brain. There are no demyelinating plagues of the supratentorial brain, brainstem or cerebellum. There are no findings suspicious for multiple sclerosis (MS). Normal T2* images of the brain without demonstrated susceptibility artifact. There is no demonstrated hemosiderin stain. Normal bilateral basal ganglia. Normal thalami. There is no extra-axial fluid accumulation. Normal flow voids within the major intracranial circulation suggesting patency by spin echo criteria. Normal venous enhancement. There is no enhancing intra-axial or extra-axial abnormality. Normal sella turcica, pituitary gland, infundibular stalk, optic chiasm and hypothalamus. Normal tectal plate and pineal gland. Normal midbrain, luiza and medulla. Normal cerebellum. Normal basal cisterns. Normal bilateral temporal bones. Normal bilateral internal auditory canals. No demonstrated orbital abnormality, within the constraints of a routine brain study. Normal visualized paranasal sinuses. Normal calvarium and skull base. Normal visualized soft tissue structures. Normal visualized upper cervical spine. MRI/Brain W/WO Contrast IMPRESSION: Acute small to moderate-sized posterior left basal ganglia infarct 1. Small to moderate size acute infarct in the posterior limb of the left internal capsule between the thalamus and lentiform nucleus is present. No additional acute infarcts are present. Electronically Signed: Calderon Barba MD at 12:02 EDT ,
--- NOTE | 2024-02-20 14:07 | PN.HOSP_ITS ---
Reason for Visit Reason for Visit: Right-sided weakness and tingling/numbness Subjective Subjective No issues overnight. Patient reports that he has ongoing right-sided weakness and tingling/numbness in both the upper and lower extremity. He has complete absence of dorsiflexion on the right side and is able to use his right upper extremity some however he is limited with regards to strength and he is right- handed dominant. We discussed that he may need to go to rehab depending on how he performs with physical therapy and he is amenable to that if need be. Objective Data Objective Data Vital Signs: Vital Signs Temp Pulse Resp BP Pulse Ox O2 Del Method 98.4 F 85 17 128/74 H 97 Room Air 02/20/24 12:00 02/20/24 12:00 02/20/24 12:00 02/20/24 12:00 02/20/24 12:00 02/20/24 12:00 Oxygen Delivery Method Room Air Weight: 94.8 kg Body Mass Index (BMI) 32.8 Intake & Output: Intake and Output for Last 24 Hours 02/18/24 02/19/24 02/20/24 23:59 23:59 23:59 Intake Total 1808.33 / 1808.33 Output Total 3625 / 4350 1275 / 1275 Balance -1816.67 / -2541.67 -1275 / -1275 Lab / Micro Data 02/20/24 04:30 02/20/24 04:30 Labs: Laboratory Results - last 24 hr 02/20/24 04:30: WBC 9.5, RBC 4.69, Hgb 14.7, Hct 43.0, MCV 91.7, MCH 31.3, MCHC 34.2, RDW Std Deviation 42.7, RDW Coeff of Surya 12.8, Plt Count 212, MPV 10.7, Sodium 139, Potassium 3.7, Chloride 104, Carbon Dioxide 26.0, Anion Gap 9, BUN 8, Creatinine 0.69 L, Estim Creat Clear Calc 160.84, Est GFR (MDRD) Af Amer 166, Est GFR (MDRD) Non-Af 137, BUN/Creatinine Ratio 11.6, Glucose 118 H, Calcium 9.1 Radiography Diagnostic Testing: Radiology Impression Echocardiogram 02/19/24 02:34 Interpretation Summary The estimated ejection fraction is 65 %. Mild concentric left ventricular hypertrophy. Bubble contrast study is negative for PFO/ASD. Structurally normal valves. Ordering Physician: Jeyson Solorio Referring Physician: OTD Performed By: Yin Molina RDCS, RVT Brain CT 02/20/24 00:01 IMPRESSION: Small acute left basal ganglia infarct. No bleed. MRI may be helpful for further evaluation. : Electronically Signed: Edna Lopez MD at 1:42 EDT , Brain MRI 02/20/24 10:00 IMPRESSION: Acute small to moderate-sized posterior left basal ganglia infarct 1. Small to moderate size acute infarct in the posterior limb of the left internal capsule between the thalamus and lentiform nucleus is present. No additional acute infarcts are present. Electronically Signed: Calderon Barba MD at 12:02 EDT , ADDENDUM: 02/20/24 1215 IMPRESSION: Acute small to moderate-sized posterior left basal ganglia infarct 1. Small to moderate size acute infarct in the posterior limb of the left internal capsule between the thalamus and lentiform nucleus is present. No additional acute infarcts are present. N.B. : The above Results were Read Back by Calderon Barba MD to Huber Rivera RN, and understanding confirmed on 02/20/2024 12:08:33 (ET). Electronically Signed: Calderon Barba MD at 12:02 EDT , Physical Exam Const alert, oriented x3, no apparent distress and well nourished Constitutional Narrative: Obese, middle-aged, male, sitting up in bed, significant other at bedside, patient appears comfortable and nontoxic HEENT head/scalp atraumatic and moist oral mucous membranes HEENT Narrative: Mallampati 3, no thrush, dentition is good Head and Scalp: normocephalic Resp normal respiratory effort, no retractions, no use of accessory muscles and clear to auscultation bilaterally Cardio regular rate, regular rhythm, S1 normal heart sound, S2 normal heart sound, no murmurs, no rub, no gallops and no clicks GI normal to inspection, nondistended, normoactive bowel sounds, soft to palpation and non-tender Extremity no clubbing, cyanosis or edema Extremity Narrative: Pedal pulses are 2+ Neuro oriented x3, CN's II-XII intact bilaterally, moves all extremities, No no focal motor deficits and No no sensory deficits noted Neuro Narrative: Right-sided upper and lower extremity weakness, significant weakness with dorsiflexion on the right and decreased upper extremity motor control, proximal musculature seem less effective than distal musculature Speech: speech normal Psych affect normal Psych Narrative: Eye contact is good, patient interacts appropriately Assessment & Plan Assessment/Plan (1) Acute stroke due to ischemia: (2) Hyperlipidemia: PLAN: Plan Right-sided weakness/paresthesias secondary to acute stroke of the left posterior limb of the internal capsule -Cryptogenic at this point -Tenecteplase given -CT negative for hemorrhagic transformation -MRI done today (with and without contrast) shows small to moderate-sized acute infarct of the posterior limb of the left internal capsule between the thalamus and the lentiform nucleus -Echogram shows an EF of 65% with mild concentric LVH and a negative bubble study with structurally normal valves -Aspirin 81 mg started -Continue atorvastatin 80 mg (LDL-138) -Blood pressure is at goal of less than 130/80 -Continue to monitor -PT/OT/speech therapy -Currently reporting that he will need inpatient rehab and I have discussed this with social work to obtain acceptance and initiate pre-CERT as soon as able -Neuro evaluated the patient and recommended hypercoagulable lab testing with lupus anticoagulant, anticardiolipin antibody and anti beta-2 glycoprotein antibody which were sent -will check event monitor at discharge -Will need outpatient neurology follow-up at [facility] [place] after discharge -Toxicology screen is negative Hyperlipidemia -Total cholesterol is 193/LDL 138/HDL 43 -LDL goal is less than 70 -Continue high intensity dose statin -Follow-up cholesterol panel in 3 months Onychomycosis -Restart terbinafine at discharge History of right femoral fracture -Titanium keren in shaft of right femur -ORIF done in 2005 Obesity -BMI 32.7 -Recommend weight loss -complicates treatment, prognosis, outcomes DVT prophylaxis -Start Lovenox subcu daily 40 mg CODE STATUS Full code Charges/Coding Visit Charges Inpatient E&M: 04695 Subs Hosp L2
--- NOTE | 2024-02-20 15:36 | CASEMGMT ---
Social Work - discharge planning Spoke with Dr. Dwyer today who recommends inpatient RU level of care for this 38 year old patient who is positive for CVA. Therapy evaluations also indicate same recommendation. Generated inpatient rehab unit list via [employer] for patient's insurance network and geographical region. Met with patient and in room for discharge planning discussion. Shortly after this marketing writer entered room, a visitor came. Patient informed this marketing writer okay to keep discussing discharge planning, as visitor is the godfather to patient's children and much like family. Discussed RU LOC recommendation, educated to RU versus SNF level of care. Presented list and read aloud choices; left list at patient's bedside. reports it would be most convenient to have patient in [place], as although patient/ live in the [facility] area both work in [place]. Patient reports they work at [employer]. After review of choices, preferences made in this order: [facility] and then [facility] in [place], [place]. Referral to [facility] in RU admission, and that per discussion with treating physician would be okay to start precert if accepted. Plan: RU LOC, pending referral with [facility] RU. -SOFIA Gerber
[2024-02-20] MEDS: Enoxaparin 40 MG/0.4 ML Syringe SC (19:00)
[2024-02-20] MEDS: Docusate Sodium 100 MG Capsule PO (19:07)
[2024-02-20] MEDS: Polyethylene Glycol 3350 17 GM PACKET PO (19:07)
[2024-02-20] MEDS: Atorvastatin Calcium 80 MG Tablet PO (22:14)
[2024-02-21 01:43] VITALS: PULSE 86; RESP 18; TEMP 36.2; O2SAT 100
[2024-02-21 02:00] VITALS: BMI 32.8
[2024-02-21 05:38] VITALS: BP 132/86; PULSE 62; RESP 18; TEMP 36.3; O2SAT 99
[2024-02-21 08:24] VITALS: BP 127/84; PULSE 87; RESP 14; TEMP 36.6; O2SAT 98
[2024-02-21] MEDS: Enoxaparin 40 MG/0.4 ML Syringe SC (08:56)
[2024-02-21] MEDS: Polyethylene Glycol 3350 17 GM PACKET PO ×2 (08:56→21:07)
[2024-02-21] MEDS: Aspirin 81 MG TAB.CHEW PO (09:01)
--- NOTE | 2024-02-21 09:14 | STROKE.PNOTE ---
Objective Data Objective Data Vital Signs: Vital Signs Temp Pulse Resp BP Pulse Ox O2 Del Method 98 F 87 14 127/84 H 98 Room Air 02/21/24 08:24 02/21/24 08:24 02/21/24 08:24 02/21/24 08:24 02/21/24 08:24 02/21/24 08:42 Oxygen Delivery Method Room Air Weight: 94.8 kg Body Mass Index (BMI) 32.8 Intake & Output: Intake and Output for Last 24 Hours 02/19/24 02/20/24 02/21/24 23:59 23:59 23:59 Intake Total 1808.33 / 1808.33 120 / 120 120 / 120 Output Total 3625 / 4350 1525 / 1525 Balance -1816.67 / -2541.67 -1405 / -1405 120 / 120 Lab / Micro Data 02/20/24 04:30 02/20/24 04:30 Radiography Diagnostic Testing: Radiology Impression Brain MRI 02/20/24 10:00 IMPRESSION: Acute small to moderate-sized posterior left basal ganglia infarct 1. Small to moderate size acute infarct in the posterior limb of the left internal capsule between the thalamus and lentiform nucleus is present. No additional acute infarcts are present. Electronically Signed: Calderon Barba MD at 12:02 EDT , ADDENDUM: 02/20/24 1215 IMPRESSION: Acute small to moderate-sized posterior left basal ganglia infarct 1. Small to moderate size acute infarct in the posterior limb of the left internal capsule between the thalamus and lentiform nucleus is present. No additional acute infarcts are present. N.B. : The above Results were Read Back by Calderon Barba MD to Huber Rivera RN, and understanding confirmed on 02/20/2024 12:08:33 (ET). Electronically Signed: Calderon Barba MD at 12:02 EDT , Physical Exam Neuro Neuro Narrative: Oriented x3, CN's II-XII intact bilaterally and moves all extremities Neuro Narrative: Awake, alert, cooperative Speech fluent. No aphasia Motor power 5/5 . Improving right hand weakness Decreased sensation Right face Right upper extremity ataxia Subject: Neurology Subjective LORIE MCCORMICK Jr. is a 38 old M, who we are seeing in consultation today for advice on the management of right sided numbness and related patient care.s/p TNK. Has persistent numbness right face and weakness right upper extremity Assessment and Plan: Stroke Assessment/Plan LORIE MCCORMICK Jr. is a 38 M with with no past medical history who presents for evaluation of stuttering RUE/RLE weakness and numbness that has now completed with distal> proximal RUE weakness. Ct shows left basal ganglia stroke. Unclear etiology. LDL: 138 CTA: negative CT: Left basal ganglia stroke MRI: Left BG, thalamic stroke TTE: Okay HbA1c: 5.4 PLAN: Continue aspirin 81mg daily and atorvastatin 80mg daily for secondary stroke prevention. Pending hypercoaguable lab testing (lupus anticoagulant, anticardiolipin antibody, anti beta 2 glycoprotein antibody. plan 30 day cardiac event monitor upon discharge PT/OT/PHARMACOEPIDEMIOLOGIST eval. Follow up with neurology after discharge. Margarita need rehabilitation Thanks for the consultation I Spent 35 minutes in evaluation
[2024-02-21 12:45] VITALS: BP 128/75; PULSE 94; RESP 14; TEMP 36.7; O2SAT 98
--- NOTE | 2024-02-21 13:15 | PN.HOSP_ITS ---
Reason for Visit Reason for Visit: Right-sided tingling/numbness/weakness Subjective Subjective No issues overnight. Patient states he is feeling okay. Still with right-sided tingling and numbness/weakness. Feels that his arm may be getting a little bit better. Still with no active dorsiflexion on the right lower extremity. Anxious to go to rehab. Objective Data Objective Data Vital Signs: Vital Signs Temp Pulse Resp BP Pulse Ox O2 Del Method 98 F 87 14 127/84 H 98 Room Air 02/21/24 08:24 02/21/24 08:24 02/21/24 08:24 02/21/24 08:24 02/21/24 08:24 02/21/24 08:42 Oxygen Delivery Method Room Air Weight: 94.8 kg Body Mass Index (BMI) 32.8 Intake & Output: Intake and Output for Last 24 Hours 02/19/24 02/20/24 02/21/24 23:59 23:59 23:59 Intake Total 1808.33 / 1808.33 120 / 120 870 / 870 Output Total 3625 / 4350 1525 / 1525 Balance -1816.67 / -2541.67 -1405 / -1405 870 / 870 Lab / Micro Data 02/20/24 04:30 02/20/24 04:30 Physical Exam Const alert, oriented x3, no apparent distress, average body habitus, healthy appearing and well nourished Constitutional Narrative: Obese, middle-aged, male, up working with physical therapy, significant other is in the room, physical therapist at the bedside, patient appears comfortable and nontoxic General Appearance: cooperative HEENT normocephalic, head/scalp atraumatic, hearing grossly normal bilaterally and moist oral mucous membranes HEENT Narrative: Mallampati 3, no thrush Resp normal respiratory effort, no retractions, no use of accessory muscles and clear to auscultation bilaterally Cardio regular rate, regular rhythm, S1 normal heart sound, S2 normal heart sound, no murmurs, no rub, no gallops and no clicks GI normal to inspection, nondistended, normoactive bowel sounds, soft to palpation, non-tender and non-distended Extremity normal to inspection, full ROM and no clubbing, cyanosis or edema Extremity Narrative: Pedal pulses are 2+ Neuro oriented x3, moves all extremities, No no focal motor deficits and No no sensory deficits noted Neuro Narrative: Right-sided upper and lower extremity weakness, significant weakness with dorsiflexion on the right and decreased upper extremity motor control, proximal musculature seem less effective than distal musculature, still with considerable sensory deficits on the right side Speech: speech normal Psych affect normal Psych Narrative: Eye contact is good, patient interacts appropriately Assessment & Plan Assessment/Plan (1) Acute stroke due to ischemia: (2) Hyperlipidemia: PLAN: Plan Right-sided weakness/paresthesias secondary to acute stroke of the left posterior limb of the internal capsule -Cryptogenic at this point -MRI (with and without contrast) showed small to moderate-sized acute infarct of the posterior limb of the left internal capsule between the thalamus and the lentiform nucleus -Echocardiogram shows an EF of 65% with mild concentric LVH and a negative bubble study with structurally normal valves -Continue aspirin 81 mg started -Continue atorvastatin 80 mg (LDL-138) -Blood pressure is at goal of less than 130/80 -Patient's blood pressures have been at goal predominantly -Continue to monitor -PT/OT/speech therapy -Plan is for inpatient rehab unit at discharge--> awaiting acceptance and pre-CERT -Lupus anticoagulant, anticardiolipin antibody and anti beta-2 glycoprotein antibody are currently pending -Will need event monitor at discharge -Will need outpatient neurology follow-up at [facility] after discharge -Toxicology screen is negative Hyperlipidemia -Total cholesterol is 193/LDL 138/HDL 43 -LDL goal is less than 70 -Continue high intensity dose statin -Follow-up cholesterol panel in 3 months Onychomycosis -Restart terbinafine at discharge History of right femoral fracture -Titanium keren in shaft of right femur -ORIF done in 2005 Obesity -BMI 32.7 -Recommend weight loss -complicates treatment, prognosis, outcomes DVT prophylaxis -Continue Lovenox 40 subcu daily CODE STATUS Full code Charges/Coding Visit Charges Inpatient E&M: 10985 Subs Hosp L2
[2024-02-21 14:59] VITALS: BMI 32.8
[2024-02-21 16:45] VITALS: BP 126/77; PULSE 80; RESP 12; TEMP 36.6; O2SAT 95
[2024-02-21 20:44] VITALS: BP 129/85; PULSE 90; RESP 18; TEMP 37.1; O2SAT 96
[2024-02-21] MEDS: Atorvastatin Calcium 80 MG Tablet PO (21:07)
[2024-02-22 01:18] VITALS: BMI 32.8
[2024-02-22 03:00] VITALS: BP 124/79; PULSE 69; RESP 18; TEMP 36.7; O2SAT 95
--- NOTE | 2024-02-22 08:00 | CASEMGMT ---
[facility] Acute Rehab accepted patient. [facility] will start pre-cert. Aurora TARIQ
[2024-02-22 08:40] VITALS: BP 121/79; PULSE 89; RESP 14; TEMP 36.4; O2SAT 97
[2024-02-22] MEDS: Polyethylene Glycol 3350 17 GM PACKET PO (08:54)
[2024-02-22] MEDS: Enoxaparin 40 MG/0.4 ML Syringe SC (08:54)
[2024-02-22] MEDS: Aspirin 81 MG TAB.CHEW PO (08:54)
--- NOTE | 2024-02-22 09:35 | CASEMGMT ---
REBECCA notified patient that [facility] Acute Rehab accepted him. REBECCA explained that currently we are waiting on his insurance to approve. REBECCA told patient SW will let him know once insurance responds. Plan: [facility] Acute Rehab pending insurance approval. Aurora TARIQ
--- NOTE | 2024-02-22 12:33 | CASEMGMT ---
Patient does not have a Healthcare Power of Sports Equipment Supervisor or Healthcare Living Will. Per admission questions patient is not interested in documents. Aurora TARIQ
--- NOTE | 2024-02-22 16:25 | PN.HOSP_ITS ---
Reason for Visit Reason for Visit: Right-sided weakness and paresthesias Subjective Subjective Patient feels like he is slowly notices minor improvements day by day. He states the sensation in his legs seems to be improving and he is having some involuntary twitching in the dorsiflexors which is new as well. No complaints Objective Data Objective Data Vital Signs: Vital Signs Temp Pulse Resp BP Pulse Ox O2 Del Method 97.6 F L 89 14 121/79 H 97 Room Air 02/22/24 08:40 02/22/24 08:40 02/22/24 08:40 02/22/24 08:40 02/22/24 08:40 02/22/24 09:04 Oxygen Delivery Method Room Air Weight: 94.8 kg Body Mass Index (BMI) 32.8 Intake & Output: Intake and Output for Last 24 Hours 02/20/24 02/21/24 02/22/24 23:59 23:59 23:59 Intake Total 120 / 120 1770 / 1770 970 / 970 Output Total 1525 / 1525 200 / 200 Balance -1405 / -1405 1570 / 1570 970 / 970 Lab / Micro Data 02/20/24 04:30 02/20/24 04:30 Physical Exam Const alert, oriented x3, no apparent distress and well nourished; Negative for average body habitus Constitutional Narrative: Obese, middle-aged, male, sitting up in bed, significant other is at bedside, patient appears comfortable, nontoxic General Appearance: cooperative Neuro Speech: speech normal Psych affect normal Psych Narrative: Eye contact is good, patient interacts appropriately Assessment & Plan Assessment/Plan (1) Acute stroke due to ischemia: (2) Hyperlipidemia: PLAN: Plan Right-sided weakness/paresthesias secondary to acute stroke of the left posterior limb of the internal capsule -Cryptogenic at this point -MRI (with and without contrast) showed small to moderate-sized acute infarct of the posterior limb of the left internal capsule between the thalamus and the lentiform nucleus -Echocardiogram shows an EF of 65% with mild concentric LVH and a negative bubble study with structurally normal valves -Continue aspirin 81 mg started -Continue atorvastatin 80 mg (LDL-138) -Blood pressure is at goal of less than 130/80 -Patient's blood pressures have been at goal predominantly -Continue to monitor -PT/OT/speech therapy -Plan is for inpatient rehab unit at discharge--> awaiting pre-CERT from [facility] -Lupus anticoagulant, anticardiolipin antibody and anti beta-2 glycoprotein antibody are currently pending -Will need event monitor at discharge -Will need outpatient neurology follow-up at [facility] after discharge -Toxicology screen is negative Hyperlipidemia -Total cholesterol is 193/LDL 138/HDL 43 -LDL goal is less than 70 -Continue high intensity dose statin -Follow-up cholesterol panel in 3 months Onychomycosis -Restart terbinafine at discharge History of right femoral fracture -Titanium keren in shaft of right femur -ORIF done in 2005 Obesity -BMI 32.7 -Recommend weight loss -complicates treatment, prognosis, outcomes DVT prophylaxis -Continue Lovenox 40 subcu daily CODE STATUS Full code Disposition: -Patient is and has been medically ready for discharge since 02/20/2024. Has been accepted at rehab here at the [facility] acute rehab unit. Awaiting approval from insurance. Charges/Coding Visit Charges Inpatient E&M: 99274 Subs Hosp L1
[2024-02-22 16:50] VITALS: BP 126/87; PULSE 84; RESP 14; TEMP 37.1; O2SAT 100; BMI 32.8
[2024-02-22 20:56] VITALS: BP 129/96; PULSE 83; RESP 18; TEMP 35.9; O2SAT 100
[2024-02-22] MEDS: Atorvastatin Calcium 80 MG Tablet PO (20:57)
[2024-02-22 21:34] VITALS: BMI 32.8
[2024-02-23 09:02] VITALS: BP 130/94; PULSE 95; RESP 12; TEMP 36.4; O2SAT 97
[2024-02-23] MEDS: Enoxaparin 40 MG/0.4 ML Syringe SC (09:06)
[2024-02-23] MEDS: Aspirin 81 MG TAB.CHEW PO (09:06)
[2024-02-23 14:50] VITALS: BP 121/85; PULSE 87; RESP 12; TEMP 37.1; O2SAT 98
--- NOTE | 2024-02-23 15:38 | CASEMGMT ---
Patient was denied for [facility] Acute Rehab Unit. [facility] will obtain necessary information to appeal this decision as Dr Dwyer would like to appeal. Aurora Espino APPLICATIONS PROGRAMMER MARCIANO
--- NOTE | 2024-02-23 15:50 | PCM.PN.HOSP ---
Reason for Visit Reason for Visit: Right-sided weakness and paresthesias Subjective Subjective Patient states he feels like he may be getting some of his sensation back in his leg and less so in his arm. Still significant motor deficits in his right upper extremity and leg. Objective Data Objective Data Vital Signs: Vital Signs Temp Pulse Resp BP Pulse Ox O2 Del Method 98.7 F 87 12 121/85 H 98 Room Air 02/23/24 14:50 02/23/24 14:50 02/23/24 14:50 02/23/24 14:50 02/23/24 14:50 02/23/24 14:50 Oxygen Delivery Method Room Air Weight: 94.8 kg Body Mass Index (BMI) 32.8 Intake & Output: Intake and Output for Last 24 Hours 02/21/24 02/22/24 02/23/24 23:59 23:59 23:59 Intake Total 1770 / 1770 970 / 970 250 / 250 Output Total 200 / 200 Balance 1570 / 1570 970 / 970 250 / 250 Lab / Micro Data 02/20/24 04:30 02/20/24 04:30 Physical Exam Const alert, oriented x3, no apparent distress, healthy appearing and well nourished; Negative for average body habitus Constitutional Narrative: Obese, middle-aged, male, sitting up in bed, at bedside and he is currently working on his fine motor skills with his right hand which are severely limited patient appears comfortable, nontoxic General Appearance: cooperative HEENT normocephalic, head/scalp atraumatic, hearing grossly normal bilaterally and moist oral mucous membranes HEENT Narrative: Mallampati 3, no thrush Resp normal respiratory effort, no retractions, no use of accessory muscles and clear to auscultation bilaterally Auscultation: Negative for rales, rhonchi or wheezes Cardio regular rate, regular rhythm, S1 normal heart sound, S2 normal heart sound and no murmurs GI normal to inspection, nondistended, normoactive bowel sounds, soft to palpation and non-tender Extremity no clubbing, cyanosis or edema Extremity Narrative: Pedal pulses are 2+ Neuro oriented x3, moves all extremities, No no focal motor deficits and No no sensory deficits noted Neuro Narrative: Right-sided upper and lower extremity weakness, significant weakness with dorsiflexion on the right and decreased upper extremity motor control, proximal musculature seem less effective than distal musculature, still with considerable sensory deficits on the right side Speech: speech normal Psych affect normal Psych Narrative: Eye contact is good, patient interacts appropriately Assessment & Plan Assessment/Plan (1) Acute stroke due to ischemia: (2) Hyperlipidemia: PLAN: Plan Right-sided weakness/paresthesias secondary to acute stroke of the left posterior limb of the internal capsule -Cryptogenic at this point -MRI (with and without contrast) showed small to moderate-sized acute infarct of the posterior limb of the left internal capsule between the thalamus and the lentiform nucleus -Echocardiogram shows an EF of 65% with mild concentric LVH and a negative bubble study with structurally normal valves -Continue aspirin 81 mg started -Continue atorvastatin 80 mg (LDL-138) -Blood pressure is at goal of less than 130/80 -Blood pressure remains in goal range -Continue to monitor -PT/OT/speech therapy -Plan is for inpatient rehab unit at discharge--> awaiting pre-CERT from [facility] -Lupus anticoagulant, anticardiolipin antibody and anti beta-2 glycoprotein antibody are currently pending -Will need event monitor at discharge -Will need outpatient neurology follow-up at [facility] after discharge -Toxicology screen is negative Hyperlipidemia -Total cholesterol is 193/LDL 138/HDL 43 -LDL goal is less than 70 -Continue high intensity dose statin -Follow-up cholesterol panel in 3 months Onychomycosis -Restart terbinafine at discharge History of right femoral fracture -Titanium keren in shaft of right femur -ORIF done in 2005 Obesity -BMI 32.7 -Recommend weight loss -complicates treatment, prognosis, outcomes DVT prophylaxis -Continue Lovenox 40 subcu daily CODE STATUS Full code Disposition: -Patient is and has been medically ready for discharge since 02/20/2024. Patient was accepted at rehab but preliminarily denied by [facility] for ongoing rehab. Patient has significant right sided deficits including his right upper extremity, which is his dominant hand. He has markedly reduced fine and gross motor control of his right upper extremity and left lower extremity which would benefit from intense rehab. He has severe foot drop of the right foot at this time and would likely need an AFO for at least the short-term. He is highly functional individual baseline and would like to get back to his full-time functional level for work and for his family. I feel like he would be best served with ongoing physician monitoring 3 times a week and intense rehab daily in an inpatient acute rehab setting given the severity of his current deficits in conjunction with his overall baseline functional level. Charges/Coding Visit Charges Inpatient E&M: 60197 Subs Hosp L2
--- NOTE | 2024-02-23 15:59 | CASEMGMT ---
Denial is going to be appealed. Physician's note will be sent to [facility] stating why patient requires inpatient rehab. SW spoke with patient and his letting them know this information. uArora TARIQ
[2024-02-23 17:00] VITALS: BMI 32.8
[2024-02-23 20:50] VITALS: BP 129/76; PULSE 78; RESP 16; TEMP 36.7; O2SAT 97
[2024-02-23] MEDS: Atorvastatin Calcium 80 MG Tablet PO (22:06)
[2024-02-24 01:07] LABS: Anti-Cardiolipin Ab, IgA, Qn < 9 APL U/mL (0-11); Anti-Cardiolipin Ab, IgG, Qn < 9 GPL U/mL (0-14); Anti-Cardiolipin Ab, IgM, Qn < 9 MPL U/mL (0-12); Dilute Prothrombin Time (dPT) 35.3 sec (0.0-47.6); Dilute Russell Viper Venom 32.3 sec (0.0-47.0); Interpretation Comment: (.); PTT-LA 36.6 sec (0.0-43.5); Thrombin Time 16.2 sec (0.0-23.0); dPT Confirm Ratio 1.07 Ratio (0.00-1.34)
[2024-02-24 02:22] VITALS: BP 114/72; PULSE 69; RESP 14; TEMP 36.7; O2SAT 98
[2024-02-24 03:38] VITALS: BMI 32.8
[2024-02-24 06:30] VITALS: BP 117/72; PULSE 68; RESP 14; TEMP 36.9; O2SAT 98
[2024-02-24 08:33] VITALS: BP 134/89; PULSE 73; RESP 12; TEMP 36.7; O2SAT 98
[2024-02-24] MEDS: Aspirin 81 MG TAB.CHEW PO (08:35)
[2024-02-24] MEDS: Enoxaparin 40 MG/0.4 ML Syringe SC (08:35)
--- NOTE | 2024-02-24 09:31 | PCM.PN.HOSP ---
Reason for Visit Reason for Visit: Diagnoses Obesity, unspecified (02/19/24) Hyperlipidemia, unspecified (02/19/24) Transient cerebral ischemic attack, unspecified (02/19/24) Essential (primary) hypertension (02/19/24) Cerebral infarction, unspecified (02/19/24) Subjective Subjective Still with right-sided weakness but overall has been improving. Lacks coordination in his right upper and right lower extremity. Has been able to help himself with a walker to get to the restroom. Objective Data Objective Data Vital Signs: Vital Signs Temp Pulse Resp BP Pulse Ox O2 Del Method 36.7 C 73 12 134/89 H 98 Room Air 02/24/24 08:33 02/24/24 08:33 02/24/24 08:33 02/24/24 08:33 02/24/24 08:33 02/24/24 08:33 Oxygen Delivery Method Room Air Weight: 94.8 kg Body Mass Index (BMI) 32.8 Intake & Output: Intake and Output for Last 24 Hours 02/22/24 02/23/24 02/24/24 23:59 23:59 23:59 Intake Total 970 / 970 750 / 750 150 / 150 Balance 970 / 970 750 / 750 150 / 150 Lab / Micro Data 02/20/24 04:30 02/20/24 04:30 Labs: Laboratory Results - last 24 hr 02/20/24 14:45: PT Diluted 35.3, PT Ratio 1.07, Thrombin Time 16.2, Lupus Anticoag aPTT 36.6, Dil Carlos Viper Venom 32.3, Lupus Anticoag Interp Comment:, Anti-Cardiolipin IgG Ab < 9, Anti-Cardiolipin IgA Ab < 9, Anti-Cardiolipin IgM Ab < 9 Physical Exam Const alert and no apparent distress HEENT head/scalp atraumatic and moist oral mucous membranes Resp normal respiratory effort and no retractions Extremity normal to inspection and no clubbing, cyanosis or edema Neuro Neuro Narrative: Moves left side perfectly well. Does have noted ataxia with movements of his right upper and right lower extremity. Psych affect normal Assessment & Plan Assessment/Plan (1) Acute stroke due to ischemia: (2) Hyperlipidemia: PLAN: Plan Acute CVA MRI (with and without contrast) showed small to moderate-sized acute infarct of the posterior limb of the left internal capsule between the thalamus and the lentiform nucleus Echocardiogram shows an EF of 65% with mild concentric LVH and a negative bubble study with structurally normal valves Continue aspirin 81 mg started, atorvastatin 80 mg (LDL-138) PT/OT/speech therapy. Plan is for inpatient rehab unit at discharge--> awaiting pre-CERT from [facility] care Will need and event monitor at discharge-Will need outpatient neurology follow-up at [facility] after discharge Symptoms have improved overall but patient still with marked weakness and ataxia in his right upper and right lower extremity. I feel strongly that the patient would benefit greatly from acute inpatient rehab to help with overall improvements as this is a young individual with severe neurologic deficits, though currently improving. Obesity class I DVT prophylaxis -Continue Lovenox 40 subcu daily CODE STATUS Full code Charges/Coding Visit Charges Inpatient E&M: 15448 Subs Hosp L2
--- NOTE | 2024-02-24 12:11 | CASEMGMT ---
REBECCA notified patient that we are still waiting on insurance to respond to the appeal. Aurora Espino ENGINEERING MECHANIC MARCIANO
[2024-02-24 14:30] VITALS: BP 140/77; PULSE 78; RESP 11; TEMP 37.1; O2SAT 97
[2024-02-24 14:36] VITALS: BMI 32.8
--- NOTE | 2024-02-24 15:47 | CASEMGMT ---
SW updated patient that we are still waiting to hear from his insurance. Aurora Espino INCOME TAX CONSULTANT RESPIRATORY THERAPY AIDE
[2024-02-24] MEDS: Atorvastatin Calcium 80 MG Tablet PO (21:44)
[2024-02-24 21:47] VITALS: BP 128/89; PULSE 70; RESP 14; TEMP 36.6; O2SAT 98
[2024-02-24 22:32] VITALS: BMI 32.8
[2024-02-25 03:55] VITALS: BP 119/80; PULSE 79; RESP 13; TEMP 36.3; O2SAT 95
--- NOTE | 2024-02-25 08:10 | PCM.PN.HOSP ---
Reason for Visit Reason for Visit: Diagnoses Obesity, unspecified (02/19/24) Hyperlipidemia, unspecified (02/19/24) Transient cerebral ischemic attack, unspecified (02/19/24) Essential (primary) hypertension (02/19/24) Cerebral infarction, unspecified (02/19/24) Subjective Subjective Still with weakness and the right side. Patient states that he is able to open his right hand better but not able to completely close it particular with his fifth finger. Still has no sensation in his foot. Does have some paresthesias now developing in his right leg which is an improvement. Objective Data Objective Data Vital Signs: Vital Signs Temp Pulse Resp BP Pulse Ox O2 Del Method 36.3 C L 79 13 119/80 95 Room Air 02/25/24 03:55 02/25/24 03:55 02/25/24 03:55 02/25/24 03:55 02/25/24 03:55 02/25/24 03:55 Oxygen Delivery Method Room Air Weight: 94.8 kg Body Mass Index (BMI) 32.8 Intake & Output: Intake and Output for Last 24 Hours 02/23/24 02/24/24 02/25/24 23:59 23:59 23:59 Intake Total 750 / 750 1100 / 1100 Output Total 1500 / 1500 Balance 750 / 750 -400 / -400 Lab / Micro Data 02/20/24 04:30 02/20/24 04:30 Labs: Laboratory Results - last 24 hr 02/20/24 14:45: Miscellaneous Test Physical Exam Const alert and no apparent distress HEENT head/scalp atraumatic and moist oral mucous membranes Head and Scalp: normocephalic Eyes EOMs intact bilaterally Eyes Narrative: No icterus Resp normal respiratory effort and no retractions Neuro Neuro Narrative: No facial droop. Patient has a decent muscle strength in his right upper extremity but does have ataxia. Unable to fully extend his fingers and fully flex his fingers as well in the right upper extremity. Does have weakness in regards to plantar as well as dorsiflexion in the right foot. Sensorium / Orientation: awake and alert Assessment & Plan Assessment/Plan (1) Acute stroke due to ischemia: (2) Hyperlipidemia: PLAN: Plan Acute CVA MRI (with and without contrast) showed small to moderate-sized acute infarct of the posterior limb of the left internal capsule between the thalamus and the lentiform nucleus Echocardiogram shows an EF of 65% with mild concentric LVH and a negative bubble study with structurally normal valves Continue aspirin 81 mg started, atorvastatin 80 mg (LDL-138) PT/OT/speech therapy. Plan is for inpatient rehab unit at discharge--> awaiting pre-[facility] care Will need and event monitor at discharge-Will need outpatient neurology follow-up at [facility] after discharge Symptoms have improved overall but patient still with marked weakness and ataxia in his right upper and right lower extremity. I feel strongly that the patient would benefit greatly from acute inpatient rehab to help with overall improvements as this is a young individual with severe neurologic deficits, though currently improving. Obesity class I DVT prophylaxis -Continue Lovenox 40 subcu daily CODE STATUS Full code Disposition: To be determined. Patient had been declined for rehab previously. It is going to review which would not be reviewed until March 05. Case management informed of this and the plan is to see if he would qualify to go to the transitional care unit. As mentioned previously, I feel the patient would be a very good candidate for inpatient rehab or additional therapy services as I feel that he be very motivated and with profound deficits in a young person would be most beneficial. Charges/Coding Visit Charges Inpatient E&M: 22093 Subs Hosp L2
[2024-02-25 08:56] VITALS: BP 131/69; PULSE 62; RESP 12; TEMP 36.7; O2SAT 100
[2024-02-25] MEDS: Enoxaparin 40 MG/0.4 ML Syringe SC (08:58)
[2024-02-25] MEDS: Aspirin 81 MG TAB.CHEW PO (08:58)
--- NOTE | 2024-02-25 09:28 | CASEMGMT ---
Kassy in Rehab spoke with [facility]. [facility] said they have until March 05 to give an answer. Kassy suggested patient go to TCU if approved and if [facility] then approves Rehab move patient up to Rehab. REBECCA spoke with patient and explained this information. Patient was agreeable to going to TCU if approved and then if [facility] then proceeds to approve Rehab patient would be moved to the Rehab Unit. Kassy will need to obtain auth from [facility] for TCU. Kassy will submit for pre-cert once PT sees patient today. Aurora Espino ASSOCIATE PROFESSOR OF PHILOSOPHY MARCIANO
[2024-02-25 14:00] VITALS: BP 134/86; PULSE 96; RESP 14; TEMP 36.8; O2SAT 98
--- NOTE | 2024-02-25 14:29 | CHAPLAIN ---
Type of Pastoral Visit ___ Initial Visit _x__ Follow-up Visit ___ On-call Visit ___ General Patient Visit ___ Spiritual Assessment ___ Family Conference ___ Bereavement ___ Rapid Response ___ Code Blue ___ Other (describe below) Pastoral Care Referral From _x__ Patient ___ Family ___ Nurse ___ Physician ___ Principal Web Developer ___ Type Copy Examiner ___ Other (describe below) Sacrament/Intervention _x__ Active listening ___ Anointing ___ Mormonism ___ Bereavement ___ Communion ___ [place] exploration ___ ___ Life review ___ Prayer ___ Reconciliation ___ Sacrament of Sick _x__ Supportive presence ___ Wedding ___ Other (describe below) Pastoral Comments follow up to this patient that was moved from ICU to PCU and is awaiting insurance approval for rehab; pt is thankful to be in hospital and yet disappointed in the insurance system that keeps him from getting therapy at this time; pt has seen progress and appreciates the therapy team for pointing this out; pt admits some discouragement at a particular DR lack of clear communication; no other needs presented but pt expresses thanks for the visit
[2024-02-25 17:00] VITALS: BMI 32.8
[2024-02-25 20:00] VITALS: BP 147/91; PULSE 83; RESP 16; TEMP 36.6; O2SAT 98
[2024-02-25] MEDS: Atorvastatin Calcium 80 MG Tablet PO (20:05)
[2024-02-26 00:31] VITALS: BMI 32.8
--- NOTE | 2024-02-26 08:08 | PN.HOSP_ITS ---
Reason for Visit Reason for Visit: Diagnoses Obesity, unspecified (02/19/24) Hyperlipidemia, unspecified (02/19/24) Transient cerebral ischemic attack, unspecified (02/19/24) Essential (primary) hypertension (02/19/24) Cerebral infarction, unspecified (02/19/24) Subjective Subjective Still with the right-sided weakness but he states that he has some more sensation in his distal right lower extremity as well as in his upper right arm. Still has difficulty with manipulating objects in his right hand. Objective Data Objective Data Vital Signs: Vital Signs Temp Pulse Resp BP Pulse Ox O2 Del Method 36.6 C 83 16 147/91 H 98 Room Air 02/25/24 20:00 02/25/24 20:00 02/25/24 20:00 02/25/24 20:00 02/25/24 20:00 02/25/24 20:00 Oxygen Delivery Method Room Air Weight: 94.8 kg Body Mass Index (BMI) 32.8 Intake & Output: Intake and Output for Last 24 Hours 02/24/24 02/25/24 02/26/24 23:59 23:59 23:59 Intake Total 1100 / 1100 750 / 750 Output Total 1500 / 1500 800 / 800 450 / 450 Balance -400 / -400 -50 / -50 -450 / -450 Lab / Micro Data 02/20/24 04:30 02/20/24 04:30 Physical Exam Const alert and no apparent distress Resp normal respiratory effort, no retractions, no use of accessory muscles and clear to auscultation bilaterally Cardio regular rate and regular rhythm Neuro Neuro Narrative: Patient with difficulty opening his right hand but is able to do some thumb to other fingers including his ring finger. Pinky finger cannot fully flex nor extend. Assessment & Plan Assessment/Plan (1) Acute stroke due to ischemia: (2) Hyperlipidemia: PLAN: Plan Acute CVA * MRI (with and without contrast) showed small to moderate-sized acute infarct of the posterior limb of the left internal capsule between the thalamus and the lentiform nucleus * Echocardiogram shows an EF of 65% with mild concentric LVH and a negative bubble study with structurally normal valves * Continue aspirin 81 mg started, atorvastatin 80 mg (LDL-138) * PT/OT/speech therapy. Plan is for inpatient rehab unit at discharge--> awaiting pre-CERT from [facility] * Will need and event monitor at discharge-Will need outpatient neurology follow-up at [facility] after discharge * Symptoms have improved overall but patient still with marked weakness and ataxia in his right upper and right lower extremity. I feel strongly that the patient would benefit greatly from acute inpatient rehab to help with overall improvements as this is a young individual with severe neurologic deficits, though currently improving. Obesity class I DVT prophylaxis -Continue Lovenox 40 subcu daily CODE STATUS Full code Disposition: To be determined. Patient had been declined for rehab previously. It is going to review which would not be reviewed until March 05. Case management informed of this and the plan is to see if he would qualify to go to the transitional care unit. As mentioned previously, I feel the patient would be a very good candidate for inpatient rehab or additional therapy services as I feel that he be very motivated and with profound deficits in a young person would be most beneficial. Charges/Coding Visit Charges Inpatient E&M: 93463 Subs Hosp L1
[2024-02-26 08:26] VITALS: BP 121/73; PULSE 78; RESP 16; TEMP 36.7; O2SAT 97
[2024-02-26] MEDS: Enoxaparin 40 MG/0.4 ML Syringe SC (08:30)
[2024-02-26] MEDS: Aspirin 81 MG TAB.CHEW PO (08:30)
--- NOTE | 2024-02-26 11:32 | CASEMGMT ---
Appeal for [facility] Acute Rehab was denied by [facility]. Awaiting answer from insurance regarding [facility] TCU. Aurora TARIQ
--- NOTE | 2024-02-26 13:26 | CASEMGMT ---
Patient was approved to go to [facility] TCU. Appeal for Rehab was denied. SW notified patient, physician, and RN. Plan[facility] skilled level [facility] care. Aurora TARIQ
--- NOTE | 2024-02-26 13:36 | PCM.TXEXTCAR ---
Diet Diet Order/Speech Therapy: 02/19/24 07:36 Diet: Cardiac - Heart Healthy Is pt able to select menu?: Yes Diet Comments: Consider enteral nutrition if NPO > 3 days Therapies Weight Bearing: Full weight bearing Physical Therapy: Eval and Treat Occupational Therapy: Eval and Treat Problem/Diagnosis (1) Acute stroke due to ischemia: Status: Acute Code(s): I63.9 - Cerebral infarction, unspecified (2) Hyperlipidemia: Status: Acute Code(s): E78.5 - Hyperlipidemia, unspecified Plan Acute CVA MRI (with and without contrast) showed small to moderate-sized acute infarct of the posterior limb of the left internal capsule between the thalamus and the lentiform nucleus Echocardiogram shows an EF of 65% with mild concentric LVH and a negative bubble study with structurally normal valves Continue aspirin 81 mg started, atorvastatin 80 mg (LDL-138) PT/OT/speech therapy. Plan is for inpatient rehab unit at discharge--> awaiting pre-CERT from [facility] care Will need and event monitor at discharge-Will need outpatient neurology follow-up at [facility] after discharge Symptoms have improved overall but patient still with marked weakness and ataxia in his right upper and right lower extremity. I feel strongly that the patient would benefit greatly from acute inpatient rehab to help with overall improvements as this is a young individual with severe neurologic deficits, though currently improving. Obesity class I DVT prophylaxis -Continue Lovenox 40 subcu daily CODE STATUS Full code Disposition: To be determined. Patient had been declined for rehab previously. It is going to review which would not be reviewed until March 05. Case management informed of this and the plan is to see if he would qualify to go to the transitional care unit. As mentioned previously, I feel the patient would be a very good candidate for inpatient rehab or additional therapy services as I feel that he be very motivated and with profound deficits in a young person would be most beneficial. Allergies/Procedures Done in Hospital Allergies No Known Allergies Allergy (Verified 02/18/24 23:27) Procedures: 2-D Echocardiogram Type of Care/Length of Stay Estimated LOS: Convalescent Care Less Than 30 days Type of Care Needed: Skilled Rehab Potential: Good Prognosis: Good Additional Orders/Day of Discharge Day of Discharge: 02/26/24 Dietary and Speech Recommendations Dietitian Recommendations/Changes: Continue Cardiac diet as ordered. Discharge Plan Admission Admit Date/Time: 06/21/24 01:30 Attending Provider: Abdirahman Saldivar Primary Care Provider: ERICH XIE PA-C Consulting Providers: Jeyson oSlorio; Olivia Dwyer; Parth Garcia; Liz Soto; Maritza Campbell; Brittni Horan; Paola Bustamante; John Driscoll; Shea Pisano; Shaquille Maurer; Bryan Peralta; Andrew Solano; Genia George; Vic Hollins; Simin Felder; Philip Reese; Shmuel Sifuentes; Fernando Garcia; Leigh Glover; Antwan Valentino; Neena Dwyer; Jyay Frank Discharge Orders/Prescriptions Prescriptions: New atorvastatin 80 mg Tablet 80 mg PO QHS Qty: 0 0RF docusate sodium 100 mg Capsule 100 mg PO DAILY PRN PRN (Reason: Constipation) Qty: 0 0RF aspirin 81 mg Tablet,Chewable 81 mg PO BREAKFAST Qty: 0 0RF Continued terbinafine HCl 250 mg tablet 250 mg PO DAILY Referrals / Follow Up: [facility] [Other] - Within 2 Weeks ERICH XIE PA-C [Other] [facility] [Provider Group] - Within 1 Month Disposition Disposition (needs filled in before D/C Order can be placed): Long Term Facility
--- NOTE | 2024-02-26 13:41 | DS.PCM_ITS ---
Providers Date of Admission: 02/19/24 Primary Care Physician: ERICH XIE Consultations 02/19/24 02:34 Consult: Watermaster / Pulmonary Medicine Routine Consulting Provider: Pulmonary Medicine liz Hercules Reason for Consult: Acute Ischemic Stroke/TIA EMERGENT Consult: Yes Notified: Yes Date Notified: 02/19/24 Time Notified: 01:33 Method of Notification: ED Physician Initiated 02/19/24 07:33 Consult: Tele-Neurology Routine Consulting Provider: [facility] Reason for Consult: Stroke s/p TNK EMERGENT Consult: No Notified: Yes Date Notified: 02/19/24 Time Notified: 07:33 Method of Notification: Answering Service Nursing Unit Staff Notify [facility] of Tele-Neurology Consult: Yes Reason For Visit: TIA VERSUS STUTTERING CVA; WITH TRANSIENT RUE Diagnosis Discharge Diagnosis (1) Acute stroke due to ischemia: Status: Acute Code(s): I63.9 - Cerebral infarction, unspecified (2) Hyperlipidemia: Status: Acute Code(s): E78.5 - Hyperlipidemia, unspecified Plan Acute CVA * MRI (with and without contrast) showed small to moderate-sized acute infarct of the posterior limb of the left internal capsule between the thalamus and the lentiform nucleus * Echocardiogram shows an EF of 65% with mild concentric LVH and a negative bubble study with structurally normal valves * Continue aspirin 81 mg started, atorvastatin 80 mg (LDL-138) * PT/OT/speech therapy. Plan is for inpatient rehab unit at discharge--> awaiting pre-CERT from [facility] * Will need and event monitor at discharge-Will need outpatient neurology follow-up at [facility] after discharge * Symptoms have improved overall but patient still with marked weakness and ataxia in his right upper and right lower extremity. I feel strongly that the patient would benefit greatly from acute inpatient rehab to help with overall improvements as this is a young individual with severe neurologic deficits, though currently improving. Obesity class I DVT prophylaxis -Continue Lovenox 40 subcu daily CODE STATUS Full code Disposition: To be determined. Patient had been declined for rehab previously. It is going to review which would not be reviewed until March 05. Case management informed of this and the plan is to see if he would qualify to go to the transitional care unit. As mentioned previously, I feel the patient would be a very good candidate for inpatient rehab or additional therapy services as I feel that he be very motivated and with profound deficits in a young person would be most beneficial. Medications at Discharge Home Medications terbinafine HCl 250 mg tablet 250 mg PO DAILY 02/19/24 aspirin 81 mg chewable tablet 81 mg PO BREAKFAST #0 tabs 02/26/24 atorvastatin 80 mg tablet 80 mg PO QHS #0 tabs 02/26/24 docusate sodium 100 mg capsule 100 mg PO DAILY PRN PRN Constipation #0 caps 02/26/24 Hospital Course Operations None Procedures 2-D Echocardiogram Summary of Care Provided Minutes Spent on Discharge: 35 Hospital Course: Patient presents with acute onset of right-sided weakness. Patient did receive tenecteplase and still had residual right-sided weakness but though has steadily improved. Patient underwent a workup that showed a small to moderate-sized acute infarct in the posterior limb of the left internal capsule between the thalamus and lentiform nucleus. Echocardiogram is unremarkable. Patient was seen by neurology recommends aspirin and atorvastatin. Patient still with ongoing deficits in his hands and leg though his face is currently proved though he does have some paresthesias in his upper scalp. Patient was felt to be a good candidate for acute rehab but was initially denied. That would not be reevaluated until March 05. So in the meantime, patient was accepted at the transitional care unit. Hope is that patient would be approved for rehab lies over the transitional care unit so they can go there to finish up his therapy. Weight / BMI Weight Weight: 94.8 kg Body Mass Index (BMI) 32.8 ABG / Lab / Microbiology Data 02/20/24 04:30 02/20/24 04:30 D/C Instructions Discharge Diet: Low fat / Low cholesterol Meaningful Use Info Meaningful Use Meaningful Use Diagnoses (Choose all that apply): Ischemic CVA CVA Therapy Assessed for PT,OT and/or ST?: Yes Ischemic Stroke Antithrombotic order at d/c?: Yes Dx of Atrial fib/flutter?: No Anticoagulant at discharge?: No Reason anticoagulant not ordered: Treatment not Indicated Statin Dosing Therapy Reference: STATIN DOSE THERAPY REFERENCE: * Patients > 75 years receive moderate or high dose statin therapy. * Patients 75 years or YOUNGER should receive HIGH intensity statin dose unless contraindicated. You will be required to document reason for non-treatment if statin daily dose does not meet guidelines. HIGH DOSE STATIN THERAPY DAILY Atorvastatin > than or = to 40 mg Rosuvastatin > than or = to 20 mg Amlodipine + Atorvastatin > than or = to 2.5/40 mg Ezetimibe + Simvastatin 10/80 mg Simvastatin 80mg Statins at discharge?: Yes If patient is 75 or younger, pt will be discharged on HIGH intensity statin.: Y es Primary Dx Acute Ischemic CVA?: Yes IV thrombolytic ordered during stay?: Yes Discharge Plan Admission Admit Date/Time: 02/19/24 01:30 Primary Reason for Your Visit: Stroke Attending Provider: Abdirahman Saldivar Primary Care Provider: ERICH XIE PA-C Consulting Providers: Jeyson Solorio; Olivia Dwyer; Parth Garcia; Liz Soto; Maritza Campbell; Brittni Horan; Paola Bustamante; John Driscoll; Shea Pisano; Shaquille Maurer; Bryan Peralta; Andrew Solano; Genia George; Vic Hollins; Simin Felder; Philip Reese; Shmuel Sifuentes; Fernando Garcia; Leigh Glover; Antwan Valentino; Neena Dwyer; Jayy Frank Discharge Orders/Prescriptions Prescriptions: New atorvastatin 80 mg Tablet 80 mg PO QHS Qty: 0 0RF docusate sodium 100 mg Capsule 100 mg PO DAILY PRN PRN (Reason: Constipation) Qty: 0 0RF aspirin 81 mg Tablet,Chewable 81 mg PO BREAKFAST Qty: 0 0RF Continued terbinafine HCl 250 mg tablet 250 mg PO DAILY Referrals / Follow Up: [facility] [Other] - Within 2 Weeks ERICH XIE PA-C [Other] [facility] [Provider Group] - Within 1 Month Disposition Disposition (needs filled in before D/C Order can be placed): [facility] Facility Charges/Coding Visit Charges Inpatient E&M: 65306 Disch Hosp >30min
[2024-02-26 14:06] VITALS: BP 136/79; PULSE 80; RESP 16; TEMP 36.6; O2SAT 99
[2024-02-26 14:12] VITALS: BMI 32.8
--- NOTE | 2024-02-26 14:56 | NURSING ---
Report called to Kali in TCU.
== END 2024-02-26 15:15 | disposition skilled nursing facility (03) | DRG 62 ==
LOC: ED 02-19 00:54 → ICU 02-19 01:35 → PCU 02-20 17:22
PROVIDERS: Internal Medicine; Admitting Provider Internal Medicine; Emergency Provider Emergency Medicine
DX: I63.9 Cerebral infarction, unspecified (principal); G81.91 Hemiplegia, unspecified affecting right dominant side; I10 Essential (primary) hypertension; E78.5 Hyperlipidemia, unspecified; E66.9 Obesity, unspecified; B35.1 Tinea unguium; R73.9 Hyperglycemia, unspecified; R27.0 Ataxia, unspecified; R29.810 Facial weakness; R29.706 NIHSS score 6; Z68.32 Body mass index [BMI] 32.0-32.9, adult
CPT/HCPCS: 51702; 70450; 70496; 70498; 70553; 71045; 80048; 80053; 80061; 80307; 83036; 83735; 84100; 84443; 85025; 85027; 85610; 85730; 86147; 92610; 93005; 93306; 97110; 97112; 97116; 97162; 97166; 97530; 97535; 97802; 99285; A9575; J3101; Q9967; A4216; J3490

== ENCOUNTER 2024-02-26 15:27 | Inpatient (IN) | payer OTHER, SELFPAY ==
[2024-02-26 15:36] VITALS: BP 136/82; PULSE 85; RESP 14; TEMP 36.2; O2SAT 99; BMI 31.7
[2024-02-26 15:38] VITALS: BP 136/82; PULSE 85; RESP 14; TEMP 36.2
--- NOTE | 2024-02-26 18:00 | PCM.HP.STD ---
HPI - General General Date of Admission: 02/26/24 Date of Service: 02/26/24 Chief Complaint: Here for rehabilitation. HPI Narrative 02/19/2024 LORIE MCCORMICK, is a 38 Male who presents to [facility] ED with stroke alert. Numbness/tingling right arm, right leg. Later, sudden onset of right arm, right leg weakness. Unable to stand, EMS called. Blood pressure elevated. CT head negative for acute bleed. Stroke neurology consulted, TNK given, NIHSS 6. CTA head/neck negative for LVO. NIHSS improved to 1. 02/19/2024 Admit [facility]. Echo, MRI brain, check labs, urine tox negative, aspirin, high intensity stat for TIA/stroke. SCD for DVT prophylaxis. 02/19/2024 Echo EF 65%. Mild concentric LVH. Bubble contrast negative for PFT/ASD. 02/19/2024 Aspirin, high intensity statin. PT/OT. 02/19/2024 Neurology recommended aspirin 81mg daily, Atorvastatin 80mg qhs. PT/OT/ST. Neurology also recommended hypercoagulable workup. 02/20/2024 Right sided weakness, numbness, tingling. TNK given, CT head negative for hemorrhagic transformation. MRI brain showed left internal capsule stroke. Blood pressure goal < 130/80. PT/OT/ST. Neurology recommended hypercoagulable workup. 02/21/2024 No overnight issues, right tingling/numbness/weakness. Lovenox 40mg sc daily for dvt prophylaxis. 02/22/2024 Daily minor improvement of right side. Plan inpatient rehab on discharge. 02/23/2024 Sensation improving right arm, right leg. [facility] denied inpatient rehab. 02/24/2024 Right sided weakness slowly improving. Follow up [facility] on discharge. 02/25/2024 Right sided weakness, right leg paresthesia. Would benefit from inpatient rehab. 02/26/2024 PT/OT/ST for TCU. 02/26/2024 Admit to TCU with debility, here for rehabilitation, strengthening, prior to discharge home with . [facility] Medical History Obesity (BMI 30.0-34.9) Home Medications ?Medication ?Instructions ?Recorded ?Last Taken ?Type terbinafine HCl 250 mg tablet 250 mg PO DAILY antifungal 02/19/24 Unknown History aspirin 81 mg chewable tablet 81 mg PO BREAKFAST blood thinner 02/26/24 02/26/24 08:30 Rx #0 tabs atorvastatin 80 mg tablet 80 mg PO QHS cholesterol #0 tabs 02/26/24 02/25/24 20:05 Rx docusate sodium 100 mg capsule 100 mg PO DAILY PRN PRN 02/26/24 02/20/24 Rx Constipation #0 caps Allergy/AdvReac Type Severity Reaction Status Date / Time No Known Allergies Allergy Verified 02/18/24 23:27 Family History (Updated 02/26/24 @ 18:[address] Samir Bingham MD) Father Myocardial infarction Surgical History S/P ORIF (open reduction internal fixation) fracture Social History (Updated 02/26/24 @ 18:[address] Samir Bingham MD) household members: spouse and children current occupational status: employed Smoking Status: Never smoker alcohol intake: never substance use type: does not use ROS Constitutional Constitutional: Denies chills, fever(s) or weight gain ENT HEENT: Denies headache(s), nasal congestion or nasal discharge Cardiovascular Cardiovascular: Denies chest pain or palpitations Respiratory/Chest Respiratory/Chest: Denies cough, excessive phlegm production or shortness of breath with exertion Gastrointestinal Gastrointestinal: Denies abdominal pain, nausea or vomiting Genitourinary Genitourinary: Denies dysuria Musculoskeletal Musculoskeletal: Denies joint pain or joint swelling Integumentary Integumentary: Denies rash or wounds Neurologic Neurologic: Reports focal weakness, numbness, tingling and weakness Psychiatric Psychiatric: Denies anxiety, auditory hallucinations, depression, homicidal ideation or suicidal ideation Vital Signs Vital Signs Vital Signs: 02/26/24 15:36 02/26/24 15:38 02/26/24 16:15 Temperature 97.2 F L 97.2 F L Temperature Source Temporal Temporal Pulse Rate 85 85 Pulse Rhythm Regular Pulse Strength Normal (2+) Respiratory Rate 14 14 Respiratory Effort Normal Non-Labored Respiratory Depth Normal Respiratory Pattern Normal Blood Pressure 136/82 H 136/82 H Blood Pressure Mean 100 100 Blood Pressure Source Monitor Monitor Blood Pressure Position Sitting Sitting Blood Pressure Location Left Arm Left Arm Pulse Ox 99 Oxygen Delivery Method Room Air Room Air Room Air Weight Weight: 91.852 kg Body Mass Index (BMI) 31.7 Physical Exam Const alert General Appearance: cooperative HEENT normocephalic Eyes PERRL and EOMs intact bilaterally Neck supple, no JVD and no carotid bruits Resp normal respiratory effort, normal air movement and clear to auscultation bilaterally Cardio regular rate and regular rhythm GI normal to inspection, nondistended, normoactive bowel sounds, non-tender and non-distended Extremity normal capillary refill General Extremity: Negative for edema Skin no rashes or lesions noted General Skin Exam: no breakdown Neuro Neuro Narrative: Right hemiparesis. NIHSS 4 Minor paralysis facial palsy Drift motor leg Limb ataxia present in one limb [id number] sensory loss. Speech: speech normal Psych affect normal Appearance: appropriate Assessment & Plan Assessment/Plan (1) Debility: (2) Acute stroke due to ischemia: (3) Onychomycosis: (4) Obesity: (5) Essential (primary) hypertension: PLAN: Plan 38 year old male with below past medical history hospitalized for left sided stroke, right hemiparesis, admitted to TCU with debility, here for rehabilitation, strengthening, prior to discharge home with . Debility - PT/OT. Pain - Tylenol 1000mg q6 prn pain (1-10). Bowel - colace 100mg daily prn, Magnesium citrate 300ml daily prn, Dulcolax 10mg pr daily prn. Adult immunization - Administer pneumonia vaccine, covid vaccine, flu vaccine as appropriate. DVT prophylaxis - Lovenox 40mg sc daily. Stroke - Aspirin 81mg daily, hypercoagulable workup pending, f/u [facility] neurology on discharge. Hyperlipidemia - Atorvastatin 80mg qhs. Onychomycosis (toenails) - Terbinafine 250mg daily.
[2024-02-26] MEDS: Atorvastatin Calcium 80 MG Tablet PO (19:53)
[2024-02-27 01:07] VITALS: BMI 31.7
[2024-02-27] MEDS: Enoxaparin 40 MG/0.4 ML Syringe SC (05:02)
[2024-02-27 09:14] LABS: Absolute Lymphocyte Count 2.38 X10^3/uL (0.83-4.51); Absolute Neutrophil Count 5.5 X10^3/uL (2.0-7.7); Basophil# 0.08 X10^3/uL; Basophil% 0.9 % (0-1); Eosinophil# 0.18 X10^3/uL; Eosinophils% 2.1 % (0-5); Hematocrit 46.1 % (40-54); Hemoglobin 15.9 g/dL (13.0-16.5); Lymphocyte # 2.38 X10^3/ul (0.83-4.51); Lymphocyte % 27.2 % (19-41); Mean Corp Hgb Conc 34.5 g/dL (32-36); Mean Corpuscular Hgb 31.5 pg (27.0-32.0); Mean Corpuscular Volume 91.5 fL (80-94); Mean Platelet Vol. 10.8 fl (6.2-12.0); Monocyte# 0.58 X10^3/uL; Monocyte% 6.6 % (0-10); NRBC Flagged by Analyzer 0 % (0-5); Neutrophil # 5.49 X10^3/uL (2.7-7.7); Neutrophil % 62.7 % (47-70); Platelet Count 244 K/mm3 (150-450); RBC Distribution Width CV 12.5 % (11.6-14.6); RBC Distribution Width SD 41.7 fl (35.1-43.9); Red Blood Count 5.04 M/mm3 (4.6-6.2); White Blood Count 8.8 K/mm3 (4.4-11.0)
[2024-02-27] MEDS: Aspirin 81 MG TAB.CHEW PO (09:20)
[2024-02-27 10:27] LABS: Anion Gap 8 (5-15); BUN 14 mg/dL (7-18); BUN/Creat Ratio 16.2 RATIO (10-20); Calcium,Total 9.7 mg/dL (8.5-10.1); Chloride 104 mmol/L (98-107); Creatinine, Serum 0.86 mg/dL (0.70-1.30); EST Glomerular Filtration Rate 106 mL/min (>60); Est Glom Filt Rate - Afr Amer 128 mL/min (>60); Estimated Creatinine Clearance 127.09 ml/min; Glucose 121 mg/dL (74-106); Potassium 3.5 mmol/L (3.5-5.1); Sodium Level 139 mmol/L (136-145)
[2024-02-27] MEDS: Tuberculin,Purif.prot.deriv. 50 TU/ML Vial 0.1 ML ID (12:20)
[2024-02-27 15:39] VITALS: BP 118/75; PULSE 74; RESP 16; TEMP 36.4; O2SAT 96
[2024-02-27] MEDS: Atorvastatin Calcium 80 MG Tablet PO (21:31)
[2024-02-28 04:53] VITALS: BMI 31.7
[2024-02-28] MEDS: Enoxaparin 40 MG/0.4 ML Syringe SC (06:37)
[2024-02-28 09:12] VITALS: PULSE 71; RESP 16; O2SAT 96
[2024-02-28] MEDS: Aspirin 81 MG TAB.CHEW PO (10:01)
[2024-02-28 12:41] VITALS: BP 120/70; PULSE 71; RESP 16; TEMP 36.5; O2SAT 96
--- NOTE | 2024-02-28 15:40 | PHA.CONS_ITS ---
Documented by User: Munira Mclaughlin 02/28/24 15:47 TCU RX Drug Regimen Review Subjective/Objective Subjective/Objective: Subjective: TCU Admission. 38 YOM presented to the ER as a stroke alert. Hospitalized for left sided stroke, right hemiparesis. Admitted to TCU with dena santana for strengthening and rehabilitation. Objective: Allergies No Known Allergies Allergy (Verified 02/18/24 23:27) Current Medications Generic Name Dose Route Start Last Admin Trade Name Freq PRN Reason Stop Dose Admin Acetaminophen 1,000 mg 02/26/24 18:18 Acetaminophen 500 Mg Tablet PO Q6H PRN PRN Pain Score 1-10 Aspirin 81 mg 02/27/24 08:00 02/28/24 10:01 Aspirin 81 Mg Tab.Chew PO 81 mg BREAKFAST TRAVIS Administration Atorvastatin Calcium 80 mg 02/26/24 22:00 02/27/24 21:31 Atorvastatin Calcium 80 Mg Tablet PO 80 mg QHS TRAVIS Administration Bisacodyl 10 mg 02/26/24 15:52 Bisacodyl 10 Mg Suppository RC DAILY PRN PRN Constipation Clarify Med Order 0 each 02/27/24 15:00 Clarify Order NOTE CLARIFY TRAVIS Docusate Sodium 100 mg 02/26/24 15:55 Docusate Sodium 100 Mg Capsule PO DAILY PRN PRN Constipation Enoxaparin Sodium 40 mg 02/27/24 06:00 02/28/24 06:37 Enoxaparin 40 Mg/0.4 Ml Syringe SC 40 mg DAILY@0600 TRAVIS Administration Magnesium Citrate 300 ml 02/26/24 15:52 Magnesium Citrate 300 Ml PO X1 PRN Constipation Non-Formulary Medication 250 mg 02/27/24 10:00 Terbinafine Hcl PO DAILY TRAVIS Tuberculin PPD 0.1 ml 03/05/24 10:00 Tuberculin,Purif.Prot.Deriv. 50 Tu/Ml Vial ID 03/05/24 10:01 X1 ONE Problem List Essential (primary) hypertension (Acute) Obesity (Acute) Onychomycosis (Acute) Debility (Acute) Acute stroke due to ischemia (Acute) Vital Signs Temp Pulse Resp BP Pulse Ox O2 Del Method 97.7 F L 71 16 120/70 96 Room Air 02/28/24 12:41 02/28/24 12:41 02/28/24 12:41 02/28/24 12:41 02/28/24 12:41 02/28/24 12:41 Oxygen Delivery Method Room Air Weight: 91.852 kg Body Mass Index (BMI) 31.7 Sodium 139 mmol/L (136-145) 02/27/24 08:41 Potassium 3.5 mmol/L (3.5-5.1) 02/27/24 08:41 Chloride 104 mmol/L (98-107) 02/27/24 08:41 Carbon Dioxide 27.0 mmol/L (21.0-32.0) 02/27/24 08:41 Anion Gap 8 (5-15) 02/27/24 08:41 BUN 14 mg/dL (7-18) 02/27/24 08:41 Creatinine 0.86 mg/dL (0.70-1.30) 02/27/24 08:41 Est GFR (MDRD) Af Amer 128 mL/min (>60) 02/27/24 08:41 Est GFR (MDRD) Non-Af 106 mL/min (>60) 02/27/24 08:41 BUN/Creatinine Ratio 16.2 RATIO (10-20) 02/27/24 08:41 Glucose 121 mg/dL (74-106) H 02/27/24 08:41 Assessment/Plan: 1. Pain: acetaminophen 1000mg PO Q6H PRN pain 1-10. Resident has not had any doses. Please continue to monitor for increased pain and PRN usage. 2. Bowel: docusate 100mg PO daily PRN constipation, magnesium citrate 300mL PO daily PRN constipation and bisacodyl 10mg RC daily PRN constipation. Resident has not had any PRN doses. Please continue to monitor for constipation and PRN usage. Last documented bowel movement 02/27/24. 3. DVT prophylaxis: enoxaparin 40mg SC daily. Please continue to monitor for S/S of bleeding/DVT, hemoglobin (last 15.9g/dL), renal function (CrCl 127 mL/min) and platelets (last 244,000). 4. Stroke/hyperlipidemia: aspirin 81mg PO daily and atorvastatin 80mg PO QHS. Please continue to monitor for S/S of bleeding, hemoglobin, muscle pain, LFTs (last 02/19/24) and lipid panel (last 02/19/24). 5. Onychomycosis (toenails): terbinafine 250mg PO daily (has not started since admitted, waiting for family to bring in). Please continue to monitor for rash, diarrhea and toenail improvement. Assessment/Plan for indications treated with psychotropic medications: None Medical chart and medication regimen reviewed. The following medication irregularities or issues were identified: None Date Date of Note:: 02/28/24 Documented by User: Dr. Samir Bingham MD 02/29/24 07:37 TCU RX Drug Regimen Review Provider Comments Provider responsibility Provider Comments to Recommendations by Pharmacy: Agree
[2024-02-28] MEDS: Atorvastatin Calcium 80 MG Tablet PO (19:56)
[2024-02-29 04:04] VITALS: BMI 31.7
[2024-02-29] MEDS: Enoxaparin 40 MG/0.4 ML Syringe SC (06:35)
[2024-02-29] MEDS: Aspirin 81 MG TAB.CHEW PO (08:03)
--- NOTE | 2024-02-29 09:24 | NURSING ---
Offered covid vaccine, VIS provided. Patient refuses at this time.
--- NOTE | 2024-02-29 12:27 | NURSING ---
Archival Studies Professor Note; Activity Asset: Dustin Oleary is independent in his choice of daily activities. His visits daily and he welcomes visits with the lighter captain and therapy dog. Anirudh has a tablet, smartphone he uses and will watch tv, read and play games. Staff will remind him of weekly activities, encourage group and respect hs right to say no.
[2024-02-29 13:32] VITALS: BP 122/75; PULSE 88; RESP 18; TEMP 36.4; O2SAT 97
--- NOTE | 2024-02-29 16:38 | NURSING ---
Pt home medication Lamisil returned to pt's to take home.
[2024-02-29 20:00] VITALS: RESP 14
[2024-02-29] MEDS: Atorvastatin Calcium 80 MG Tablet PO (20:01)
[2024-03-01] MEDS: Enoxaparin 40 MG/0.4 ML Syringe SC (06:14)
[2024-03-01 10:10] VITALS: BMI 31.5
[2024-03-01] MEDS: Aspirin 81 MG TAB.CHEW PO (10:11)
[2024-03-01 15:20] VITALS: BP 109/70; PULSE 73; RESP 14; TEMP 36.4
--- NOTE | 2024-03-01 16:31 | CASEMGMT ---
Social Work Met with patient to complete initial assessment. Introduced self and role. Pt's best friend, Andrzej, was present in room, and permitted her to remain. SW verified/updated contacts. Educated to [facility] insurance with NRD 03/04 and continued stay is not guaranteed with review, and does not require advanced notice for LCD. Pt's goal is to return to PLOF as pt is 38 yo. Pt has a and two kids to support, goal is to return to work, driving, and complete all ADLs independently. Pt confirmed code status as full code. SW offered to assist in completing advanced directives, if pt wishes. SW will continue to follow for DC planning. Alison Briscoe, DUY TOROW
[2024-03-01] MEDS: Acetaminophen 500 MG Tablet 1000 MG PO (20:03)
[2024-03-01] MEDS: Atorvastatin Calcium 80 MG Tablet PO (20:03)
[2024-03-01 20:07] VITALS: RESP 15
[2024-03-02] MEDS: Enoxaparin 40 MG/0.4 ML Syringe SC (06:30)
[2024-03-02] MEDS: Aspirin 81 MG TAB.CHEW PO (08:04)
--- NOTE | 2024-03-02 11:23 | MDS.RN ---
Pain interview for MDS complete.
--- NOTE | 2024-03-02 12:16 | CASEMGMT ---
Social Work IDT met with patient, and friend Andrzej, for care plan meeting. Discussed patient's progress in PT/OT/SN. Educated to [facility] CM insurance with NRD 03/04 and continued stay is not guaranteed with each review and no advanced notice is required for LCD. Discussed HHC vs OP and need for FWW at [place]. SW to coordinate services at [place]. Will continue to follow. Alison Briscoe, SCENIC ARTIST IMPERSONATOR CHARACTER
[2024-03-02 14:07] VITALS: BP 136/76; PULSE 87; RESP 14; TEMP 36.8; O2SAT 97
[2024-03-02] MEDS: Atorvastatin Calcium 80 MG Tablet PO (20:34)
[2024-03-03] MEDS: Enoxaparin 40 MG/0.4 ML Syringe SC (08:10)
[2024-03-03] MEDS: Aspirin 81 MG TAB.CHEW PO (08:10)
[2024-03-03 10:00] VITALS: PULSE 78; RESP 16
[2024-03-03 14:06] VITALS: BP 130/78; PULSE 78; RESP 16; TEMP 36.2; O2SAT 98
[2024-03-03] MEDS: Atorvastatin Calcium 80 MG Tablet PO (20:25)
[2024-03-04 06:19] LABS: Absolute Lymphocyte Count 2.54 X10^3/uL (0.83-4.51); Absolute Neutrophil Count 4.9 X10^3/uL (2.0-7.7); Basophil# 0.06 X10^3/uL; Basophil% 0.7 % (0-1); Eosinophil# 0.29 X10^3/uL; Eosinophils% 3.4 % (0-5); Hematocrit 41.9 % (40-54); Hemoglobin 14.4 g/dL (13.0-16.5); Lymphocyte # 2.54 X10^3/ul (0.83-4.51); Lymphocyte % 30.1 % (19-41); Mean Corp Hgb Conc 34.4 g/dL (32-36); Mean Corpuscular Hgb 31.6 pg (27.0-32.0); Mean Corpuscular Volume 91.9 fL (80-94); Mean Platelet Vol. 10.9 fl (6.2-12.0); Monocyte# 0.65 X10^3/uL; Monocyte% 7.7 % (0-10); NRBC Flagged by Analyzer 0 % (0-5); Neutrophil # 4.86 X10^3/uL (2.7-7.7); Neutrophil % 57.6 % (47-70); Platelet Count 238 K/mm3 (150-450); RBC Distribution Width CV 12.4 % (11.6-14.6); RBC Distribution Width SD 41.9 fl (35.1-43.9); Red Blood Count 4.56 M/mm3 (4.6-6.2); White Blood Count 8.4 K/mm3 (4.4-11.0)
[2024-03-04 06:45] LABS: Anion Gap 6 (5-15); BUN 14 mg/dL (7-18); BUN/Creat Ratio 18.4 RATIO (10-20); Chloride 107 mmol/L (98-107); Creatinine, Serum 0.76 mg/dL (0.70-1.30); EST Glomerular Filtration Rate 122 mL/min (>60); Est Glom Filt Rate - Afr Amer 148 mL/min (>60); Estimated Creatinine Clearance 143.37 ml/min; Glucose 99 mg/dL (74-106); Potassium 3.6 mmol/L (3.5-5.1); Sodium Level 139 mmol/L (136-145)
[2024-03-04 09:10] VITALS: BP 117/72; PULSE 97; RESP 18; TEMP 36; O2SAT 98
[2024-03-04] MEDS: Aspirin 81 MG TAB.CHEW PO (09:31)
[2024-03-04] MEDS: Enoxaparin 40 MG/0.4 ML Syringe SC (09:31)
--- NOTE | 2024-03-04 14:06 | CHAPLAIN ---
Type of Pastoral Visit ___ Initial Visit _x__ Follow-up Visit ___ On-call Visit ___ General Patient Visit ___ Spiritual Assessment ___ Family Conference ___ Bereavement ___ Rapid Response ___ Code Blue ___ Other (describe below) Pastoral Care Referral From _x__ Patient ___ Family ___ Nurse ___ Physician ___ Composition Roll Maker And Cutter ___ Rodent Exterminator ___ Other (describe below) Sacrament/Intervention ___ Active listening ___ Anointing ___ Muslim ___ Bereavement ___ Communion ___ Beverly exploration ___ ___ Life review ___ Prayer ___ Reconciliation ___ Sacrament of Sick _x__ Supportive presence ___ Wedding ___ Other (describe below) Pastoral Comments follow up to this patient who was seen earlier in ICU and then in PCU; pt is doing some exercises with the help of a friend; pt reports on insurance decisions and still having to wait for answers; offer of ongoing support as pt desires
--- NOTE | 2024-03-04 16:03 | CASEMGMT ---
Social Work BIMS () and PHQ-2 () completed for MDS assessment. Alison Briscoe MSW WARP TYING MACHINE TENDER
[2024-03-04] MEDS: Atorvastatin Calcium 80 MG Tablet PO (20:47)
[2024-03-05] MEDS: Aspirin 81 MG TAB.CHEW PO (10:30)
[2024-03-05] MEDS: Enoxaparin 40 MG/0.4 ML Syringe SC (10:30)
[2024-03-05] MEDS: Tuberculin,Purif.prot.deriv. 50 TU/ML Vial 0.1 ML ID (10:31)
[2024-03-05 10:35] VITALS: BP 123/68; PULSE 91; RESP 16; TEMP 36.5; O2SAT 99
[2024-03-05 20:00] VITALS: BMI 31.5
[2024-03-05] MEDS: Atorvastatin Calcium 80 MG Tablet PO (21:35)
[2024-03-06] MEDS: Enoxaparin 40 MG/0.4 ML Syringe SC (07:33)
[2024-03-06] MEDS: Aspirin 81 MG TAB.CHEW PO (07:33)
[2024-03-06 07:36] VITALS: BP 120/77; PULSE 76; TEMP 36.6; O2SAT 99
[2024-03-06 07:42] VITALS: PULSE 78; RESP 15; O2SAT 99
[2024-03-06] MEDS: Atorvastatin Calcium 80 MG Tablet PO (20:45)
[2024-03-06 23:46] VITALS: BMI 31.5
[2024-03-07 08:45] VITALS: BP 141/77; PULSE 77; RESP 18; TEMP 36.6; O2SAT 97
--- NOTE | 2024-03-07 08:56 | NURSING ---
Sewer Pipe Press Operator Note; MDS for 03/04/2024 Complete
[2024-03-07] MEDS: Enoxaparin 40 MG/0.4 ML Syringe SC (09:01)
[2024-03-07] MEDS: Aspirin 81 MG TAB.CHEW PO (09:01)
[2024-03-07 20:58] VITALS: BP 124/73; PULSE 78
[2024-03-07] MEDS: Atorvastatin Calcium 80 MG Tablet PO (21:00)
[2024-03-08] MEDS: Aspirin 81 MG TAB.CHEW PO (08:24)
[2024-03-08] MEDS: Enoxaparin 40 MG/0.4 ML Syringe SC (08:24)
[2024-03-08 08:48] VITALS: BMI 31.8
[2024-03-08 13:09] VITALS: BP 124/79; PULSE 78; RESP 16; TEMP 36.3; O2SAT 97
--- NOTE | 2024-03-08 13:17 | CASEMGMT ---
Social Work Insurance issued LCD 03/10, DC 03/11. REBECCA spoke with pt and friend, Andrzej, at bedside. Educated to DC date. Confirmed needs at DC are FWW and OP PT/hand OT. Pt unsure of OP center preference. SW provided list of options. Pt is discharging to friend's home in [place] and is taking FMLA to assist pt. REBECCA sent referral to [employer] via [facility]. -- presented to this worker's office and elected [facility]. SW faxed referral to [facility] for PT/hand OT. Plan: DC to friend's home with support 03/11, FWW, [facility] PT/hand OT DUY CasillasW
--- NOTE | 2024-03-08 15:29 | CHAPLAIN ---
Type of Pastoral Visit ___ Initial Visit _x__ Follow-up Visit ___ On-call Visit ___ General Patient Visit ___ Spiritual Assessment ___ Family Conference ___ Bereavement ___ Rapid Response ___ Code Blue ___ Other (describe below) Pastoral Care Referral From _x__ Patient ___ Family ___ Nurse ___ Physician ___ Funeral Location Manager ___ Musician Instrumental ___ Other (describe below) Sacrament/Intervention ___ Active listening ___ Anointing ___ Tenriism ___ Bereavement ___ Communion ___ Beverly exploration ___ ___ Life review ___ Prayer ___ Reconciliation ___ Sacrament of Sick _x__ Supportive presence ___ Wedding ___ Other (describe below) Pastoral Comments another attempt to make a follow up visit to this patient; pt is welcoming but admits that he is soon to get a shower; spouse is in the room; both are offered support and if there are any needs; pt speaks of his departure plan and on his progress; pt expresses thanks for the administrative office manager to check on him and for the visits; no other concerns at this time
--- NOTE | 2024-03-08 19:26 | DS.PCM_ITS ---
Providers Date of Admission: 02/26/24 Primary Care Physician: ERICH XIE Reason For Visit: TIA VERSUS STUTTERING CVA Diagnosis Discharge Diagnosis (1) Debility: Status: Acute Code(s): R53.81 - Other malaise (2) Acute stroke due to ischemia: Status: Acute Code(s): I63.9 - Cerebral infarction, unspecified (3) Onychomycosis: Status: Acute Code(s): B35.1 - Tinea unguium (4) Obesity: Status: Acute Code(s): E66.9 - Obesity, unspecified (5) Essential (primary) hypertension: Status: Acute Code(s): I10 - Essential (primary) hypertension Plan 38 year old male with below past medical history hospitalized for left sided stroke, right hemiparesis, admitted to TCU with debility, here for rehabilitation, strengthening, prior to discharge home with . * Debility - PT/OT. * Pain - Tylenol 1000mg q6 prn pain (1-10). * Bowel - colace 100mg daily prn, Magnesium citrate 300ml daily prn, Dulcolax 10mg pr daily prn. * Adult immunization - Administer pneumonia vaccine, covid vaccine, flu vaccine as appropriate. * DVT prophylaxis - Lovenox 40mg sc daily. * Stroke - Aspirin 81mg daily, hypercoagulable workup pending, f/u [facility] neurology on discharge. * Hyperlipidemia - Atorvastatin 80mg qhs. * Onychomycosis (toenails) - Terbinafine 250mg daily. Medications at Discharge Home Medications aspirin 81 mg chewable tablet 81 mg PO BREAKFAST 30 days #30 tabs 03/08/24 atorvastatin 80 mg tablet 80 mg PO QHS 30 days #30 tabs 03/08/24 Hospital Course Operations None Procedures None Summary of Care Provided Minutes Spent on Discharge: 35 Hospital Course: 38 year old male with below past medical history hospitalized for left sided stroke, s/p TNK, right hemiparesis, admitted to TCU with debility, here for rehabilitation, strengthening, prior to discharge home with . Discharge to friend's home with support 03/11/2024, FWW, [employer] PT/hand OT. FWW: Patient unsafe to use a cane and requires a walker for ambulation. Physical Exam Const alert General Appearance: cooperative HEENT normocephalic Eyes PERRL and EOMs intact bilaterally Neck supple, no JVD and no carotid bruits Resp normal respiratory effort, normal air movement and clear to auscultation bilaterally Cardio regular rate and regular rhythm GI normal to inspection, nondistended, normoactive bowel sounds, non-tender and non-distended Extremity normal capillary refill General Extremity: Negative for edema Skin no rashes or lesions noted General Skin Exam: no breakdown Neuro Neuro Narrative: Right hemiparesis. NIHSS 4 Minor paralysis facial palsy Drift motor leg Limb ataxia present in one limb [id number] sensory loss. Speech: speech normal Psych affect normal Appearance: appropriate Weight / BMI Weight Weight: 92.125 kg Body Mass Index (BMI) 31.8 ABG / Lab / Microbiology Data 03/04/24 05:35 03/04/24 05:35 D/C Instructions Discharge Diet: No restrictions Discharge Activity: Return to Normal Activity, May Shower and Use Walker May resume sexual activity in: No Restrictions Weight Bearing Status: Weight bearing as tolerated Call your doctor if you observe: Fever of 101 or Higher, Inability to urinate, Inability to have a bowel movement, Shortness of breath, Dizziness, Fainting spells, Swelling in the ankles, Chest pain and Uncontrolled pain Additional Instructions: Discharge to friend's home with support 03/11/2024, FWW, [employer] PT/hand OT. FWW: Patient unsafe to use a cane and requires a walker for ambulation. Please Follow Up With: [facility] When: 4 weeks. Meaningful Use Info Meaningful Use Meaningful Use Diagnoses (Choose all that apply): Ischemic CVA CVA Therapy Assessed for PT,OT and/or ST?: Yes Ischemic Stroke Antithrombotic order at d/c?: Yes Dx of Atrial fib/flutter?: No Statin Dosing Therapy Reference: STATIN DOSE THERAPY REFERENCE: * Patients > 75 years receive moderate or high dose statin therapy. * Patients 75 years or YOUNGER should receive HIGH intensity statin dose unless contraindicated. You will be required to document reason for non-treatment if statin daily dose does not meet guidelines. HIGH DOSE STATIN THERAPY DAILY Atorvastatin > than or = to 40 mg Rosuvastatin > than or = to 20 mg Amlodipine + Atorvastatin > than or = to 2.5/40 mg Ezetimibe + Simvastatin 10/80 mg Simvastatin 80mg Statins at discharge?: Yes If patient is 75 or younger, pt will be discharged on HIGH intensity statin.: Y es Primary Dx Acute Ischemic CVA?: Yes Discharge Plan Admission Admit Date/Time: 02/26/24 15:27 Primary Reason for Your Visit: Debility. Attending Provider: Samir Bingham Chi Primary Care Provider: ERICH XIE PA-C Instructions Additional Instructions / Restrictions: Discharge to friend's home with support 03/11/2024, FWW, [employer] PT/hand OT. FWW: Patient unsafe to use a cane and requires a walker for ambulation. Discharge Orders/Prescriptions Prescriptions: New atorvastatin 80 mg Tablet 80 mg PO QHS 30 Days Qty: 30 0RF aspirin 81 mg Tablet,Chewable 81 mg PO BREAKFAST 30 Days Qty: 30 0RF Discontinued terbinafine HCl 250 mg tablet 250 mg PO DAILY atorvastatin 80 mg Tablet 80 mg PO QHS Qty: 0 0RF docusate sodium 100 mg Capsule 100 mg PO DAILY PRN PRN (Reason: Constipation) Qty: 0 0RF aspirin 81 mg Tablet,Chewable 81 mg PO BREAKFAST Qty: 0 0RF Referrals / Follow Up: ERICH XIE PA-C [Other] Disposition Disposition (needs filled in before D/C Order can be placed): Home, Self Care
[2024-03-08] MEDS: Atorvastatin Calcium 80 MG Tablet PO (21:45)
[2024-03-09] MEDS: Enoxaparin 40 MG/0.4 ML Syringe SC (09:39)
[2024-03-09] MEDS: Aspirin 81 MG TAB.CHEW PO (09:39)
--- NOTE | 2024-03-09 10:37 | MDS.RN ---
Information for the MDS was obtained from review of the clinical record, interview of resident, staff, and direct observation of resident?s care.
[2024-03-09 16:00] VITALS: BP 113/71; PULSE 78; RESP 14; TEMP 35.9; O2SAT 97
[2024-03-09] MEDS: Atorvastatin Calcium 80 MG Tablet PO (20:06)
[2024-03-09 23:40] VITALS: BMI 31.8
[2024-03-10 07:41] VITALS: BP 119/80; PULSE 74; RESP 16; TEMP 36.4; O2SAT 98
[2024-03-10] MEDS: Enoxaparin 40 MG/0.4 ML Syringe SC (07:42)
[2024-03-10] MEDS: Aspirin 81 MG TAB.CHEW PO (07:42)
[2024-03-10] MEDS: Atorvastatin Calcium 80 MG Tablet PO (20:16)
[2024-03-11 05:26] VITALS: PULSE 65; RESP 16; O2SAT 96
[2024-03-11 05:53] LABS: Absolute Lymphocyte Count 2.61 X10^3/uL (0.83-4.51); Absolute Neutrophil Count 4.6 X10^3/uL (2.0-7.7); Basophil# 0.08 X10^3/uL; Eosinophil# 0.14 X10^3/uL; Eosinophils% 1.7 % (0-5); Hematocrit 41.7 % (40-54); Hemoglobin 14.3 g/dL (13.0-16.5); Lymphocyte # 2.61 X10^3/ul (0.83-4.51); Lymphocyte % 32.5 % (19-41); Mean Corp Hgb Conc 34.3 g/dL (32-36); Mean Corpuscular Hgb 31.4 pg (27.0-32.0); Mean Corpuscular Volume 91.4 fL (80-94); Mean Platelet Vol. 10.7 fl (6.2-12.0); Monocyte% 7.5 % (0-10); NRBC Flagged by Analyzer 0 % (0-5); Neutrophil # 4.56 X10^3/uL (2.7-7.7); Neutrophil % 56.9 % (47-70); Platelet Count 225 K/mm3 (150-450); RBC Distribution Width CV 12.7 % (11.6-14.6); RBC Distribution Width SD 42.5 fl (35.1-43.9); Red Blood Count 4.56 M/mm3 (4.6-6.2)
[2024-03-11 07:08] LABS: Anion Gap 6 (5-15); BUN 14 mg/dL (7-18); BUN/Creat Ratio 17.7 RATIO (10-20); Calcium,Total 9.1 mg/dL (8.5-10.1); Chloride 109 mmol/L (98-107); Creatinine, Serum 0.79 mg/dL (0.70-1.30); EST Glomerular Filtration Rate 117 mL/min (>60); Est Glom Filt Rate - Afr Amer 142 mL/min (>60); Estimated Creatinine Clearance 138.55 ml/min; Glucose 106 mg/dL (74-106); Potassium 3.7 mmol/L (3.5-5.1); Sodium Level 140 mmol/L (136-145)
[2024-03-11 07:41] VITALS: BP 118/67; PULSE 74; RESP 16; TEMP 36.6; O2SAT 94
[2024-03-11] MEDS: Aspirin 81 MG TAB.CHEW PO (07:42)
[2024-03-11] MEDS: Enoxaparin 40 MG/0.4 ML Syringe SC (07:42)
--- NOTE | 2024-03-11 16:04 | CASEMGMT ---
Social Work BIMS () and PHQ2 () completed for MDS assessment. Alison Avendano, STEAM PRESSURE CHAMBER OPERATOR ELDERLY CAREGIVER
== END 2024-03-11 09:56 | disposition home or self-care (01) | DRG 57 ==
PROVIDERS: Admitting Provider Family Medicine Geriatric Medicine; Referring Provider Family Medicine Geriatric Medicine; Visit Provider Family Medicine Geriatric Medicine
DX: I69.351 Hemiplegia and hemiparesis following cerebral infarction affecting right dominant side (principal); B35.1 Tinea unguium; I10 Essential (primary) hypertension; E78.5 Hyperlipidemia, unspecified; E66.9 Obesity, unspecified; Z79.899 Other long term (current) drug therapy; Z79.82 Long term (current) use of aspirin; Z68.31 Body mass index [BMI] 31.0-31.9, adult
CPT/HCPCS: 36415; 80048; 85025; 97032; 97110; 97112; 97116; 97162; 97166; 97530; 97535; 97802

== ENCOUNTER 2024-07-12 10:30 | Outpatient (RCR) | payer OTHER, SELFPAY ==
--- NOTE | 2024-03-15 14:02 | HP.PTEVAL_ITS ---
Patient's Visit Information Visit Information Visit Information: LORIE MCCORMICK Jr. is a 38 year old M referred to Physical Therapy by Dr. Samir Bingham MD with a diagnosis of CVA R foot drop and R hand neglext. Date of Evaluation: 03/15/24 Physical Therapist: MYRA Mendes Visit Plan Frequency: 3x /Week Duration: 3 Months Plan: 3X/ week for 4 weeks for R LE strength, gait training (starting with a cane), balance activities, functional activities with HEP Subjective Subjective: Pt was at work on February 17 and felt off and sat down and felt really dizzy and nausea and as walking to find his his R side just sat down and he lowered himself to the floor and then he crawled until he got to his and they called the Squad. He got the TPA. He was in TCU and was discharged this past Thursday. He went home with a walker. He does not use the walker in the house. When he is out and about he uses the walker. He has tried to pu shing the cart in the grocery store. His balance is decent but is compromised not being able to stand on just the R leg. He can do squats and some Yoga poses with B legs on the ground. He has done Yoga off and on before hand. He was going to the gym before the stroke. He is not a sedentary person and testing him for genetic factors and then he just started a new medication that had a potential clot risk. He is R handed and working on writing again. He has moderated difficulty with R leg weakness climbing up stairs. He will trip on R foot if he goes too fast. He will do exercises on the floor and be able to get back up. He struggles with stairs, curb steps, walking, strength Objective Objective: Gait: walks with a front wheeled walker with decrease stride length on the R and increase steppage gait due to decrease DF on the R. Had the pt use a straight cane and he did very well with sequencing LE MMT: R hip flex 8.9 and L 12.8 R knee ext 18.3 and L 25.9 R knee flex 9 and L 14.8 R DF 8.7 and L 18.8 R hip abd 6.8 and 18.1 R hip ext 7.8 and L 11.8 Side stepping: decrease proprioception on the R and increase weakness present on the R. good overall balance Sit to stand: able to get up without using his UE's Balance/Special Test Scores Lower Extremity Functional Score: 23 Goals Goal 1:: I HEP Goal Time Frame: 8-12 Weeks Goal 2:: Be able to walk with least restrictive device for 350 feet with no LOB or catching her R foot. Goal Time Frame: 8-12 Weeks Goal 3:: Increase LE strength (at the inital eval: LE MMT: R hip flex 8.9 and L 12.8 R knee ext 18.3 and L 25.9 R knee flex 9 and L 14.8 R DF 8.7 and L 18.8 R hip abd 6.8 and 18.1 R hip ext 7.8 and L 11.8) Goal Time Frame: 8-12 Weeks Goal 4:: Be able to go up and down steps recip with 2 hand rails with CGA Goal Time Frame: 8-12 Weeks Rehabilitation Potential Rehabilitation Potential: Good Anticipated Interventions Patient/Client Instruction: Educate patient on: Condition and Plan of Care For the Purpose of:: To increase ROM, To improve nutrient delivery to tissue, To improve muscle performance and motor function, To improve ability to perform ADL's, To increase tolerance to activity/condition/position, To improve performance and independence with ADL's, To decrease level of supervision to perform tasks, To improve ability of physical actions for monica e/community/work/leisure, To improve gait and locomotor functions, To improve health of tissue, To decrease soft tissue restriction, To improve endurance, To improve balance, To improve safety with gait and To assume or resume ADL's Therapeutic Exercise to Include: Strength training, Power training, Endurance training, Balance training, Postural training, Flexibilty training, Gait and locomotor training, Neuromotor development and Active ROM For the Purpose of:: To improve nutrient delivery to tissue, To improve muscle performance and motor function, To improve ability to perform ADL's, To increase tolerance to activity/condition/position, To improve performance and independence with ADL's, To decrease level of supervision to perform tasks, To improve ability of physical actions for home/community/work/leisure, To improve gait and locomotor functions, To improve health of tissue, To decrease soft tissue restriction, To increase flexibility/ROM, To improve endurance, To improve balance and To improve safety with gait Functional Training to Include: Gait training For the Purpose of:: To improve gait and locomotor functions and To improve safety with gait Manual Therapy Techniques to Include: Mobilization, Passive ROM and Soft tissue mobilization For the Purpose of:: To increase ROM, To improve nutrient delivery to tissue, To improve muscle performance and motor function, To improve ability to perform ADL's, To increase tolerance to activity/condition/position, To improve performance and independence with ADL's, To decrease level of supervision to perform tasks, To improve ability of physical actions for home/community/work/leisure, To improve gait and locomotor functions, To improve health of tissue, To decrease soft tissue restriction, To increase flexibility/ROM, To improve endurance, To improve balance and To improve safety with gait Text: Thank you for the opportunity to evaluate your patient. For Medicare and Medicare HMO plans, please review the plan of care and approve it. It will need to be FAXED BACK to us at [phone] for Medicare purposes. For Medicare only, by signing this I certify the plan of care. Please let me know if there are questions or concerns regarding this plan of care. Physician Signature: Date:
--- NOTE | 2024-03-17 12:50 | HP.OTEVAL ---
Patient's Visit Information Visit Information Visit Information: LORIE MCCORMICK Jr. is a 38 year old M, referred to Occupational Therapy by Dr. Samir Bingham MD, with a diagnosis of CVA. Date of Evaluation: 03/15/24 Occupational Therapist: Emili Urrutia Subjective Subjective: This 38 year old male arrives with dx of left side CVA with right hemiparesis. Pt presents w R sided weakness, difficulty completing self care, bathing, and work tasks. Stoke occurred February 17 3 weeks ago, stayed in TCU for 1.5 weeks, discharged 03/11/24. When stroke occurred pt felt dizzy and nauseous and then felt right side go weak and lowered self to floor. Denies having any pain associated with stroke. Minor tingling in face towards head/roman catholic and tingling/numbness in MF, IF, and thumb tips. Doing most self care with left hand including washing hair, however, is getting motion back with R for self care, can use bathroom I. Can dress self I except needs to work on snaps on shirt that he wears to work. Can tie drawstring on pants and can tie his own shoes. can assist with bathing/washing hair. Pt has tub shower at home and has moderate difficulty getting in and out of tub. Currently staying at family/friends house with walk in shower. Working on getting used to bathtub transfers for going home and uses shower chair. 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 Have not attempted those tasks yet. Has to use a lot of stairs for work, change trash, mopping, sweeping, inventory work- has to carry big boxes approx. 40-50# of lifting. Plays video games, Legos, cards, and puzzles since accident to work on finger dexterity. Pt goals include returning to walking I, PLOF hand use, functional movement of each finger R side, returning to I ADL such as bathing and self care, work and hobbies. Objective Objective/Observation: pt arrives using fww as means of mobility. ROM Shoulder: WFL Elbow: WFL Forearm: L pro 90 L sup 90, R pro 90 R sup 85 Wrist: L 50/90 R 40/95 ROM Comments: L radial deviation 30 L ulnar deviation 40 R radial deviation 20 R ulnar deviation 35 Strength Shoulder: L WFL R flex 4+ abduct 4+ Elbow: L WFL R flex/ex 3+ Forearm: L 4+ R sup/pro 3+ Wrist: L WFL R flex/ex 3+ Automation Test Developer: L 82# R 40# Lateral Pinch: L 24# R 15# Tripod Pinch: L 20# R 10# Strength Comments: scap elevation L5/R5 scap protraction L5/R4 scap retraction L5/R5 Transfers Transfers: CGA sit to stand Nine Hole Peg Right: 1 min 6 sec Left: 23 sec In-Hand Manipulation Finger to Palm Translation: Moderate - Right Palm to Finger Translation: Severe - Right Quick DASH-Disab of Arm,Shoulder& Hand Quick DASH Score: 59.0900 Goals Goal:: pt to increase R shoulder strength equal to or greater than non affected side in order to complete daily functional tasks. pt to increase R elbow strength equal to or greater than non affected side in order to complete daily functional tasks. pt to increase R forearm strength equal to or greater than non affected side in order to complete daily functional tasks. pt to increase R wrist and hand strength equal to or greater than non affected side in order to complete daily functional tasks. Goal:: pt to increase R wrist extension by 15* or more in order to complete self care and other daily functional tasks. Goal:: pt will decrease 9 hole peg test by 30 seconds in order to complete self care, work tasks, and other daily functional tasks that incorporate FMC. Goal:: pt will tolerate work simulated tasks by discharge to increase I in safety and work tasks for returning to work including heavy lifting and dynamic balance. Goal:: pt will improve QuickDASH score by 30 points or more to maximize use of RUE. (59.09) Rehabilitation General Assessment: This 38 year old male arrives with dx of CVA resulting in impairments in RUE strength, ROM, in hand manipulation, coordination impacting ability to perform daily functional tasks including bathing, self care, in hand manipulation/bilateral tasks, and work tasks. Pt is recommended to complete OT 3x a week for 4 weeks to address above impairments as patient is very motivated and therapist feels is able to tolerate higher intensity levels of treatment. Rehabilitation Potential: Excellent Anticipated Interventions Anticipated Interventions: A/AAROM/PROM, Strengthening, Triggerpoint Release, Sensory Retraining, Fine Motor Coord/Ricardo, Neuro Reeducation, ADL Training, Education re assistive Equipment, Education re Diagnosis, Caregiver Training and Home Program Visit Plan Frequency: 3x /Week Duration: 4 Weeks General Plan: regain strength improve fine motor skills use wrist/hand/arm normally again resume self care, hobbies work tasks TEXT: Thank you for the opportunity to evaluate your patient. For Medicare and Medicare HMO plans, please review the plan of care and approve it. It will need to be FAXED BACK to us at [phone] for Medicare purposes. Please let me know if there are questions or concerns regarding this plan of care. Physician Signature: Date:
--- NOTE | 2024-04-08 11:02 | HP.PTREVAL_ITS ---
Re-Evaluation Intro: Dr. Samir Bingham MD, It has been my pleasure to treat LORIE MCCORMICK Jr. over the last 12 visits for CVA R foot drop and R hand neglext. Please see the progress note below for an update on the physical therapy plan of care! Subjective Subjective: Pt is doing a lot better. He wants to be able to move better and walk better. He starting to use his R hand a little better now. No falls. It is still difficult going down inclines (it feels weird and has to brace himself). [place] did the [place] on [place] and that there are a lot of hills there. They have not talked about RTW yet. Objective Objective/Function: MMT: R hip flex 15 and L 18 R knee ext 27.6 and L 27.8 R knee flex 9.5 and L 14.9 R DF 12.2 and L 19 R hip abd 16 and 18.5 R hip ext 16.2 and L 17.1 Steps: Pt up steps using his L leg more than his R and pulling some with his arms. Gait: (360 feet 2 min and 23 seconds). Walks with slightly decreased stride length and decrease stance time on the R LE with decrease toe push off Plan Plan Plan: (ideas- outside going down inclines, SLED pushing, up and down steps carrying (rolls of TP etc in a tote bag), stocking boxes on higher shelves....not looking at feet going down the stairs (like of carrying something).... 3X/ week for 8 weeks for R LE strength, gait training (starting with a cane), balance activities, functional activities with HEP Balance/Gait/Functional tests Balance/Special Test Scores Lower Extremity Functional Score: 51 Goals Goals Goal 1:: I HEP Goal Time Frame: 8-12 Weeks Goal Progress: Goal Met Goal 2:: Be able to walk with least restrictive device for 350 feet with no LOB or catching her R foot. Goal Time Frame: 8-12 Weeks Goal Progress: Progressing Goal 3:: Increase LE strength (at the inital eval: LE MMT: R hip flex 8.9 and L 12.8 R knee ext 18.3 and L 25.9 R knee flex 9 and L 14.8 R DF 8.7 and L 18.8 R hip abd 6.8 and 18.1 R hip ext 7.8 and L 11.8) Goal Time Frame: 8-12 Weeks Goal Progress: Progressing Goal 4:: Be able to go up and down steps recip with 2 hand rails with CGA Goal Time Frame: 8-12 Weeks Goal Progress: Progressing Anticipated Interventions Anticipated Interventions Patient/Client Instruction: Educate patient on: Condition and Plan of Care For the Purpose of:: To increase ROM, To improve nutrient delivery to tissue, To improve muscle performance and motor function, To improve ability to perform ADL's, To increase tolerance to activity/condition/position, To improve performance and independence with ADL's, To decrease level of supervision to perform tasks, To improve ability of physical actions for home/comm unity/work/leisure, To improve gait and locomotor functions, To improve health of tissue, To decrease soft tissue restriction, To improve endurance, To improve balance, To improve safety with gait and To assume or resume ADL's Therapeutic Exercise to Include: Strength training, Power training, Endurance training, Balance training, Postural training, Flexibilty training, Gait and locomotor training, Neuromotor development and Active ROM For the Purpose of:: To improve nutrient delivery to tissue, To improve muscle performance and motor function, To improve ability to perform ADL's, To increase tolerance to activity/condition/position, To improve performance and independence with ADL's, To decrease level of supervision to perform tasks, To improve ability of physical actions for home/community/work/leisure, To improve gait and locomotor functions, To improve health of tissue, To decrease soft tissue restriction, To increase flexibility/ROM, To improve endurance, To improve balance and To improve safety with gait Functional Training to Include: Gait training For the Purpose of:: To improve gait and locomotor functions and To improve safety with gait Manual Therapy Techniques to Include: Mobilization, Passive ROM and Soft tissue mobilization For the Purpose of:: To increase ROM, To improve nutrient delivery to tissue, To improve muscle performance and motor function, To improve ability to perform ADL's, To increase tolerance to activity/condition/position, To improve performance and independence with ADL's, To decrease level of supervision to perform tasks, To improve ability of physical actions for home/community/work/leisure, To improve gait and locomotor functions, To improve health of tissue, To decrease soft tissue restriction, To increase flexibility/ROM, To improve endurance, To improve balance and To improve safety with gait Re-Evaluation Ending Re-evaluation ending: Please do not hesitate to contact me at [phone] by phone or if you have questions or concerns regarding this new plan of care! Sincerely, Gaby Leal, MPT
--- NOTE | 2024-05-31 13:03 | HP.PTREVAL_ITS ---
Re-Evaluation Intro: Dr. Samir Bingham MD, It has been my pleasure to treat LORIE MCCORMICK Jr. 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 Please see the progress note below for an update on the physical therapy plan of care! Subjective Subjective: Pt reports work is going well and a little better each week. He has not had the time to look into a driving test. He has the information on that. He sees a new neurologist lyle for a follow up from the hospital at [facility]. It has been 3 months on 05-20-24. He is still having trouble with his R foot into eversion and if he focused now his toes will splay out. His stamina is now getting better. He feels that now he can manage 2 hallways now. Going up inclines is fine and unsteady going down inclines and hard to control down inclines. Objective Objective/Function: MMT: R hip flex 12.7 and L 19.4 R knee ext 25.6 and L 26.4 R knee flex 12.2 and L 22.6 R DF 13.9 and L 20.2 R hip abd 17.3 and 19.2 R hip ext 16.5 and L 19.8 Gait: walks with decrease stance time on the R LE Steps: Pt is able to go up and down the steps recip with no handrails but not entirely smooth motion with his R LE and decreased eccentric control on the R. Asked the pt to please use the hand rail at all times. Pt has improved hip ext ROM and control on the R He has decreased R LE DF. Plan Plan Plan: (ideas- outside going down inclines, SLED pushing, up and down steps carrying (rolls of TP etc in a tote bag), stocking boxes on higher shelves....not looking at feet going down the stairs (like of carrying something).... 3X/ week for 8 weeks for R LE strength, gait training (starting with a cane), balance activities, functional activities with HEP Balance/Gait/Functional tests Balance/Special Test Scores Lower Extremity Functional Score: 55 Goals Goals Goal 1:: I HEP Goal Time Frame: 8-12 Weeks Goal Progress: Goal Met Goal 2:: Be able to walk with least restrictive device for 350 feet with no LOB or catching his R foot. Goal Time Frame: 8-12 Weeks Goal Progress: Goal Met Goal 3:: Increase LE strength (at the inital eval: LE MMT: R hip flex 8.9 and L 12.8 R knee ext 18.3 and L 25.9 R knee flex 9 and L 14.8 R DF 8.7 and L 18.8 R hip abd 6.8 and 18.1 R hip ext 7.8 and L 11.8) Goal Time Frame: 8-12 Weeks Goal Progress: Goal Met Goal 4:: Be able to go up and down steps recip with 2 hand rails with CGA Goal Time Frame: 8-12 Weeks Goal Progress: Goal Met Anticipated Interventions Anticipated Interventions Patient/Client Instruction: Educate patient on: Condition and Plan of Care For the Purpose of:: To increase ROM, To improve nutrient delivery to tissue, To improve muscle performance and motor function, To improve ability to perform ADL's, To increase tolerance to activity/condition/position, To improve performance and independence with ADL's, To decrease level of supervision to perform tasks, To improve ability of physical actions for home/community/work/leisure, To improve gait and locomotor functions, To improve health of tissue, To decrease soft tissue restriction, To improve endurance, To improve balance, To improve safety with gait and To assume or resume ADL's Therapeutic Exercise to Include: Strength training, Power training, Endurance training, Balance training, Postural training, Flexibilty training, Gait and locomotor training, Neuromotor development and Active ROM For the Purpose of:: To improve nutrient delivery to tissue, To improve muscle performance and motor function, To improve ability to perform ADL's, To increase tolerance to activity/condition/position, To improve performance and independence with ADL's, To decrease level of supervision to perform tasks, To improve ability of physical actions for home/community/work/leisure, To improve gait and locomotor functions, To improve health of tissue, To decrease soft tissue restriction, To increase flexibility/ROM, To improve endurance, To improve balance and To improve safety with gait Functional Training to Include: Gait training For the Purpose of:: To improve gait and locomotor functions and To improve safety with gait Manual Therapy Techniques to Include: Mobilization, Passive ROM and Soft tissue mobilization For the Purpose of:: To increase ROM, To improve nutrient delivery to tissue, To improve muscle performance and motor function, To improve ability to perform ADL's, To increase tolerance to activity/condition/position, To improve performance and independence with ADL's, To decrease level of supervision to perform tasks, To improve ability of physical actions for home/community/work/leisure, To improve gait and locomotor functions, To improve health of tissue, To decrease soft tissue restriction, To increase flexibility/ROM, To improve endurance, To improve balance and To improve safety with gait Re-Evaluation Ending Re-evaluation ending: Please do not hesitate to contact me at [phone] by phone or if you have questions or concerns regarding this new plan of care! Sincerely, Gaby Leal, MPT
--- NOTE | 2024-07-12 10:38 | HP.OTDCSUM ---
Discharge Summary D/C Summary: It has been my pleasure to treat LORIE MCCORMICK Jr. under orders from Dr. Samir Bingham MD, for the diagnosis of CVA for a total of 20 visit(s). Please see the following information for a summary of their discharge status. Overall Improvement % Improvement: 80 Objective Objective/Function: R 85# L 100# lateral pinch R 12# L 18# tripod pinch R 10# L 12# Goals Patient Goals: Regain Mobility, Regain Strength, Return to Work, Improve Fine Motor Skills, Use Hand/Wrist/Arm Normally Again, Decrease Tingling/Numbness, Increase ROM, Be More Independent in ADLS, Improve Transfer Skills and Resume Hobbies Goal:: pt to increase R shoulder strength equal to or greater than non affected side in order to complete daily functional tasks. 07/12: R 17.1# L 28.1# 07/12: R ER 30.2# L 42.2# pt to increase R elbow strength equal to or greater than non affected side in order to complete daily functional tasks. (goal met) pt to increase R forearm strength equal to or greater than non affected side in order to complete daily functional tasks. (goal met) pt to increase R wrist and hand strength equal to or greater than non affected side in order to complete daily functional tasks. (goal met) Goal:: pt to increase R wrist extension by 15* or more in order to complete self care and other daily functional tasks. (goal met) Goal:: pt will decrease 9 hole peg test by 30 seconds in order to complete self care, work tasks, and other daily functional tasks that incorporate FMC. (goal met) Goal:: pt will tolerate work simulated tasks by discharge to increase I in safety and work tasks for returning to work including heavy lifting and dynamic balance. ( goal met) Goal:: pt will demo a increase in bilateral FMS timed testing on [employer] peg board in the 75% demo increase in FMS by d/c Goal:: pt will improve QuickDASH score by 30 points or more to maximize use of RUE. (59.09) 07/12: 4.5 GOAL MET Plan Plan: continue per POC for greater shoulder and RUE strength/stability/FMC (2 weeks - 2x week) D/C Information Discharge Comments: This 38 year old male seen s/p stoke to improve RUE strength as well as coordination. pt with progress made throughout POC and has now achieved all goals. discharge at this time with pt in agreeance. pt to continue exercises at home for ongoing progress. d/c sentence: If there are questions or concerns regarding this patient's occupational therapy, please fell free to call me at [phone]. Thank you for the referral of this patient. Sincerely, Reina Faith
--- NOTE | 2024-07-12 10:39 | HP.OT.NRP.C ---
Patient Information Patient Information: LORIE MCCORMICK was seen in my office for initial evaluation on . The following Plan of Care was established for this patient: Last Seen Last Seen: This patient was last seen in our office 07/12/24. Pertinent comments regarding their Occupational therapy will appear below: This 38 year old male seen s/p stroke in order to improve RUE strength as well as coordination. pt with significant progress throughout POC and plan for discharge this date with pt to continue exercises at home for ongoing progress. pt in agreeance. At this point I will be discontinuing this patient from occupational therapy. I would be happy to see this patient again in the future if found appropriate by the physician. Thank you! Reina Faith
--- NOTE | 2024-07-12 11:22 | HP.PTDCSUM ---
Discharge Summary D/C summary: It has been my pleasure to treat LORIE MCCORMICK Jr. referred by Dr. Samir Bingham MD, with the diagnosis of CVA R foot drop and R hand neglext for a total of 22 visit(s). Discharge Date: 07/12/24 Please see the following information for a summary of their discharge status. Subjective Subjective: Pt is not having trouble with anything. His max walking speed was 1.9mph and then upped it to 2.4mph. He was able to walk around the campus on his own. His has noticed improvement with his walking. He is starting to hold his balance better on his R leg better. Pt has been going to gym once a week for a min of 1/2 hour. Pt wants to go over the machines one more time Overall Improvement % Improvement: 95 Objective Objective/Function: MMT: R hip flex 16.2 and L 16.3 R knee ext 25.6 and L 26.4 R knee flex 14.1 and L 22.6 R DF 17 and L 22.9 R hip abd 18 and 19.2 R hip ext 20.9 and L 21.6 Gait: walks with slight circumduction of the R LE and decrease heel and toe raises on the R Steps: Pt is able to go up and down the steps recip with one handrails but not entirely smooth motion with his R LE. Asked the pt to please use the hand rail at all times. He has decreased R LE DF. Goals Goal 1:: I HEP Goal Progress: Goal Met Goal 2:: Be able to walk with least restrictive device for 350 feet with no LOB or catching his R foot. Goal Progress: Goal Met Goal 3:: Increase LE strength (at the inital eval: LE MMT: R hip flex 8.9 and L 12.8 R knee ext 18.3 and L 25.9 R knee flex 9 and L 14.8 R DF 8.7 and L 18.8 R hip abd 6.8 and 18.1 R hip ext 7.8 and L 11.8) Goal Progress: Goal Met Goal 4:: Be able to go up and down steps recip with 2 hand rails with CGA Goal Progress: Goal Met Plan Plan: DC PT to indep program D/C Information Discharge Comments: DC PT d/c sentence: If there are questions or concerns regarding this patient's physical therapy, please feel free to call me at [phone]. Thank you for the referral of this patient. Sincerely, Gaby Leal, MPT Balance/Gait/Functional tests Balance/Special Test Scores Lower Extremity Functional Score: 60 Improvement % Improvement: 95
== END 2024-07-12 19:00 | disposition home or self-care (01) ==
LOC: PT 10:30
PROVIDERS: Referring Provider Family Medicine Geriatric Medicine; Visit Provider Family Medicine Geriatric Medicine
DX: Z86.73 Personal history of transient ischemic attack (TIA), and cerebral infarction without residual deficits (principal); M21.371 Foot drop, right foot; R41.4 Neurologic neglect syndrome
CPT/HCPCS: 97110; 97112; 97116; 97162; 97165; 97530